=== PATIENT | female | born 1990 | race Two or more races ===

== ENCOUNTER 2016-08-19 15:06 | Emergency (ER) | payer MEDICAID ==
[~2016-08-19] VITALS: Ht 154.9 cm; Wt 68.0 kg
[2016-08-19 15:26] VITALS: BP 131/75
== END 2016-08-19 15:52 | disposition home or self-care (01) ==
LOC: ER 15:15
DX: M25.512 Pain in left shoulder (principal)

== ENCOUNTER 2017-02-24 16:12 | Emergency (ER) | payer SELFPAY ==
[~2017-02-24] VITALS: Ht 154.9 cm; Wt 58.1 kg
[2017-02-24 18:19] LABS: Urine Bilirubin Negative (Negative); Urine Blood Negative /uL (Negative); Urine Color Colorless (Yellow); Urine Glucose Normal (Normal); Urine Ketone Negative (Negative); Urine Nitrite Negative (Negative); Urine RBC <1 /hpf (0 - 4); Urine Urobilinogen Normal (Negative); Urine pH 6.5 (5.0-8.0)
[2017-02-24] MEDS ORDERED: KETOROLAC TROMETH 60MG/2ML VIAL IM ONE (18:45)
[2017-02-24] MEDS ORDERED: methylPREDNISolone SOD SUCC 125 MG/2 ML VL IM ONE (18:45)
[2017-02-24 19:36] VITALS: BP 136/82
== END 2017-02-24 19:38 | disposition home or self-care (01) ==
LOC: ER 16:15
DX: M54.16 Radiculopathy, lumbar region (principal); M79.1 Myalgia
CPT/HCPCS: 81001; 81025; 96372; 99284; J1885; J2930

== ENCOUNTER 2018-07-05 11:22 | Emergency (ER) | payer MEDICAID, OTHER ==
[~2018-07-05] VITALS: Ht 154.9 cm; Wt 56.7 kg
[2018-07-05 12:04] VITALS: BP 130/89
[2018-07-05] MEDS ORDERED: cefTRIAXone SOD 1,000 MG VL IM ONE (12:45)
[2018-07-05] MEDS ORDERED: KETOROLAC TROMETH 60MG/2ML VIAL IM ONE (12:45)
== END 2018-07-05 13:13 | disposition home or self-care (01) ==
LOC: ER 11:22
DX: N39.0 Urinary tract infection, site not specified (principal)
CPT/HCPCS: 96372; 99283; J0696; J1885

== ENCOUNTER 2020-10-11 12:26 | Emergency (ER) | payer OTHER ==
[~2020-10-11] VITALS: Ht 154.9 cm; Wt 68.0 kg
[2020-10-11] MEDS ORDERED: MORPHINE SULFATE 4 MG/ML SYR/VIAL IV ONE (12:45)
[2020-10-11] MEDS ORDERED: SODIUM CHLORIDE 0.9% 1,000 ML IV ONE ×2 (12:45)
[2020-10-11] MEDS ORDERED: ONDANSETRON HCL 4 MG/2 ML VIAL IV ONE (12:45)
[2020-10-11 13:03] LABS: Basophils # (auto) 0 10 ^3/uL (0-0.2); Basophils % (auto) 0.3 % (0.0-2.0); Eosinophils # (auto) 0.1 10 ^3/uL (0-0.8); Eosinophils % (auto) 1.4 % (0.0-7.0); Hematocrit 42.4 % (36.0-46.0); Hemoglobin 13.9 g/dL (12.2-16.2); Lymphocytes # (auto) 3.9 10 ^3/uL (0.4-5.4); Lymphocytes % (auto) 45.7 % (10.0-50.0); Mean Corpuscular Hemoglobin 27.4 pg (28.0-32.0); Mean Corpuscular Hgb Conc. 32.8 g/dL (32.0-36.0); Mean Corpuscular Volume 83.4 fL (80.0-100.0); Monocytes # (auto) 0.4 10 ^3/uL (0-1.3); Monocytes % (auto) 4.5 % (0.0-12.0); Neutrophils # (auto) 4.1 10 ^3/uL (1.6-8.6); Neutrophils % (auto) 48.1 % (37.0-80.0); Nucleated Red Blood Cells % 0.1 %; Red Blood Cells 5.09 10^6/uL (4.0-5.20); Red Cell Distribution Width 14.2 % (11.8-14.3); White Blood Cell 8.5 10^3/uL (4.4-10.8)
[2020-10-11 13:26] LABS: Albumin 3.8 g/dL (3.4-5.0); Anion Gap 8 (5-15); Blood Urea Nitrogen 7 mg/dL (7-18); Calcium 8.9 mg/dL (8.5-10.1); Carbon Dioxide 22 mmol/L (21-32); Chloride 110 mmol/L (98-107); Glucose 127 mg/dL (74-106); Potassium 3.6 mmol/L (3.5-5.1); Sodium 140 mmol/L (136-145)
[2020-10-11 13:31] LABS: Alanine Aminotransferase 42 U/L (13-56); Alkaline Phosphatase 88 U/L (45-117); Aspartate Aminotransferase 25 U/L (15-37); BUN/Creatinine Ratio 8.4; Bilirubin, Total 0.2 mg/dL (0.2-1.0); GFR African American 103 mL/min; GFR Non-African American 85 mL/min; Total Protein 7.3 g/dL (6.4-8.2)
[2020-10-11 14:41] LABS: Urine Bacteria NONE SEEN /hpf (None Seen); Urine Blood 3+ /uL (Negative); Urine Mucus FEW (None Seen); Urine Specific Gravity 1.017 (1.001-1.035); Urine WBC 1 /hpf (0 - 5)
[2020-10-11 16:00] VITALS: BP 132/83
== END 2020-10-11 14:06 | disposition short-term general hospital (02) ==
LOC: ER 12:26
DX: R10.31 Right lower quadrant pain (principal); D48.9 Neoplasm of uncertain behavior, unspecified
CPT/HCPCS: 36415; 71045; 74176; 80053; 81001; 84484; 85025; 96361; 96374; 96375; 99285; J2270; J2405

== ENCOUNTER 2023-08-05 09:16 | Emergency (ER) | payer OTHER ==
[~2023-08-05] VITALS: Ht 167.6 cm; Wt 93.9 kg
[2023-08-05 10:53] LABS: Basophils # (auto) 0 10 ^3/uL (0-0.2); Basophils % (auto) 0.2 % (0.0-2.0); Eosinophils # (auto) 0 10 ^3/uL (0-0.8); Eosinophils % (auto) 0.4 % (0.0-7.0); Hematocrit 36.5 % (36.0-46.0); Hemoglobin 11.6 g/dL (12.2-16.2); Lymphocytes # (auto) 1.5 10 ^3/uL (0.4-5.4); Mean Corpuscular Hemoglobin 21.8 pg (28.0-32.0); Mean Corpuscular Hgb Conc. 31.7 g/dL (32.0-36.0); Mean Corpuscular Volume 68.6 fL (80.0-100.0); Monocytes # (auto) 0.4 10 ^3/uL (0-1.3); Monocytes % (auto) 5.8 % (0.0-12.0); Neutrophils # (auto) 5.2 10 ^3/uL (1.6-8.6); Neutrophils % (auto) 72.6 % (37.0-80.0); Nucleated Red Blood Cells % 0.1 %; Red Blood Cells 5.32 10^6/uL (4.0-5.20); Red Cell Distribution Width 17.5 % (11.8-14.3); White Blood Cell 7.2 10^3/uL (4.4-10.8)
[2023-08-05 10:55] LABS: Amphetamine Screen, Urine Neg (NEGATIVE); Barbiturate Scree,Urine Neg (NEGATIVE); Benzodiazephine Screen, Urine Neg (NEGATIVE); Cannabinoid Screen, Urine Neg (NEGATIVE); Cocaine Screen, Urine Neg (NEGATIVE); Opiate Scree,Urine Neg (NEGATIVE); Phencyclidine Screen, Urine Neg (NEGATIVE)
[2023-08-05 11:03] LABS: Chloride 107 mmol/L (98-107); Potassium 4.2 mmol/L (3.5-5.1); Sodium 137 mmol/L (136-145)
[2023-08-05 11:04] LABS: Anion Gap 3 (5-15); Carbon Dioxide 27 mmol/L (20-30)
[2023-08-05 11:08] LABS: Urine Bacteria NONE SEEN /hpf (None Seen); Urine Blood 3+ /uL (Negative); Urine Clarity HAZY (Clear); Urine Color Yellow (Yellow); Urine Protein, UAD 1+ (Negative); Urine Specific Gravity 1.024 (1.001-1.035); Urine Urobilinogen Normal (Negative); Urine WBC 3 /hpf (0 - 5); Urine pH 6.5 (5.0-8.0)
[2023-08-05 11:09] LABS: BUN/Creatinine Ratio 8.6 (10.0-20.0); Blood Urea Nitrogen 7 mg/dL (9-23); Glucose 160 mg/dL (74-106)
[2023-08-05 11:10] LABS: Lipase 30 U/L (12-53)
[2023-08-05 12:59] VITALS: BP 137/83; PULSE 79; RESP 18; TEMP 97.6; O2SAT 96
[2023-08-05] MEDS ORDERED: cefTRIAXone SOD 1,000 MG VL IM ONE (13:00)
[2023-08-05] MEDS ORDERED: NITR-87 PO (13:14)
== END 2023-08-05 13:16 | disposition home or self-care (01) ==
LOC: ER 09:16
DX: N39.0 Urinary tract infection, site not specified (principal); R10.2 Pelvic and perineal pain; Z79.899 Other long term (current) drug therapy
CPT/HCPCS: 36415; 80048; 80307; 81001; 83690; 84702; 85025; 96372; 99283; J0696

== ENCOUNTER 2024-02-22 18:00 | Emergency (ER) | payer OTHER ==
[~2024-02-22] VITALS: Ht 152.4 cm; Wt 88.5 kg
[~2024-02-22 18:00] MED LIST: NITR-87 PO
[2024-02-22 18:17] VITALS: BP 127/76; PULSE 82; RESP 16; O2SAT 97
[2024-02-22] MEDS: KETOROLAC TROMETH 60MG/2ML VIAL IM ONE (20:56)
[2024-02-22] MEDS ORDERED: AUG875T PO (21:34)
[2024-02-22] MEDS ORDERED: IBUP-1456 PO (21:34)
[2024-02-22] MEDS: BENZOCAINE (DENTAL) 20 % SPRAY 60ML MT ONE (21:46)
== END 2024-02-22 21:51 | disposition home or self-care (01) ==
LOC: ER 18:00
DX: K02.9 Dental caries, unspecified (principal); Z79.899 Other long term (current) drug therapy
CPT/HCPCS: 96372; 99283; J1885

== ENCOUNTER 2024-05-08 06:10 | Emergency (ER) | payer OTHER ==
[~2024-05-08] VITALS: Ht 152.4 cm; Wt 93.1 kg
[~2024-05-08 06:10] MED LIST changes: +AUG875T PO; +IBUP-1456 PO
[2024-05-08 07:25] VITALS: BP 150/87; PULSE 87; RESP 13; TEMP 97.9; O2SAT 97
[2024-05-08] MEDS: cefTRIAXone SOD 1,000 MG VL IM ONE (07:28)
[2024-05-08] MEDS: IBUPROFEN 800 MG TAB PO ONE (07:28)
[2024-05-08] MEDS ORDERED: CLIN1CAP70 PO (08:00)
[2024-05-08] MEDS ORDERED: IBUP-1456 PO (08:00)
== END 2024-05-08 08:03 | disposition home or self-care (01) ==
LOC: ER 06:10
DX: K04.7 Periapical abscess without sinus (principal); F17.210 Nicotine dependence, cigarettes, uncomplicated; Z79.1 Long term (current) use of non-steroidal anti-inflammatories (NSAID)
CPT/HCPCS: 96372; 99283; J0696

== ENCOUNTER 2024-06-16 08:22 | Emergency (ER) | payer OTHER ==
[~2024-06-16] VITALS: Ht 152.4 cm; Wt 92.2 kg
[~2024-06-16 08:22] MED LIST changes: +CLIN1CAP70 PO
[2024-06-16 09:13] VITALS: BP 112/70; PULSE 82; RESP 20; TEMP 99.1; O2SAT 98
[2024-06-16] MEDS ORDERED: ACE3T PO (09:34)
[2024-06-16] MEDS ORDERED: AMOX500T3 PO (09:34)
--- NOTE | 2024-06-16 09:35 | ED.PDOC ---
Eye-HPI HPI Comments 34-year-old female presents with a chief complaint of atraumatic tooth pain to the right upper quadrant. Patient has been seen multiple times for the same complaint in the past. Patient reports she has not made time to follow up with a dental provider. Pain is currently rated as moderate in his requesting antibiotics. Denies difficulty eating drinking breathing. Denies chest pain shortness of breath fevers chills nausea vomiting diarrhea Chief Complaint: Tooth Pain Time Seen by MD: 08:38 Primary Care Provider: DR RAYMUNDO Reviewed Notes: Nurses Notes, Medications, Allergies Allergies: Coded Allergies: NO KNOWN ALLERGIES (Unverified , 05/12/13) Home Meds Active Scripts Ibuprofen (Ibuprofen) 800 Mg Tab, 1 TAB PO TID, #30 TAB Prov:ANANDA COSTA 05/08/24 Clindamycin Hcl (Clindamycin Hcl) 300 Mg Cap, 300 MG PO QID, #40 CAP Prov:ANANDA COSTA 05/08/24 Ibuprofen (Ibuprofen) 800 Mg Tab, 800 MG PO Q8HP PRN for 5 Days, #15 TAB Prov:HAYLEY OSEGUERA 02/22/24 Amoxicillin & Pot Clavulanate (AUGMENTIN TABLET) 875 Mg Tb, 875 MG PO BID for 7 Days, #14 TAB Prov:HAYLEY OSEGUERA 02/22/24 Nitrofurantoin Monohydrate Mac (Macrobid) 100 Mg Cap, 100 MG PO BID for 7 Days, #14 CAP Prov:JENN NICHOLE MD 08/05/23 Information Source: Patient Mode of Arrival: Ambulatory Past Medical History PAST MEDICAL HISTORY: Denies Surgical History: Denies all surgeries COMMUNITY RELATIONS LIAISON History: No Pertinent COMMUNITY RELATIONS LIAISON History Family History Family History: Reviewed,noncontributory to illness Social History Smoker: Cigarettes Alcohol: Denies ETOH Use Drugs: Denies Drug Use Lives In: Home All Other Systems: Reviewed and Negative (per hpi) Physical Exam General Appearance: No Apparent Distress, Normal HEENT: Normal ENT Inspection, Pharynx Normal, TMs Normal, Other (Tooth 15. Visible dental jayme. No surrounding erythema. No discharge. Moist mucous membranes airway intact) Neck: Full Range of Motion, Non-Tender, Normal, Normal Inspection Respiratory: Chest Non-Tender, Lungs Clear, No Accessory Muscle Use, No Respiratory Distress, Normal Breath Sounds Cardiovascular: No Edema, No JVD, No Murmur, No Gallop, Normal Peripheral Pulses, Regular Rate/Rhythm Breast Exam: Deferred Gastrointestinal: No Organomegaly, Non Tender, No Pulsatile Mass, Normal Bowel Sounds, Soft Genitalia: Deferred Pelvic: Deferred Rectal: Deferred Extremities: No calf tenderness, Normal capillary refill, Normal inspection, Normal range of motion, Non-tender, No pedal edema Musculoskeletal : Apperance: Normal Neurologic: Alert, elementary teacher II-XII nml as Tested, No Motor Deficits, Normal Affect, Normal Mood, No Sensory Deficits Cerebellar Function: Normal Reflexes: Normal Skin: Dry, Normal Color, Warm Lymphatic: No Adenopathy Was a procedure done? Was a procedure done?: No EENT DIFF Eye: Other X-Ray, Labs, Meds, VS Vital Signs Date Time Temp Pulse Resp B/P (MAP) Pulse Ox O2 Delivery O2 Flow Rate FiO2 06/16/24 09:13 99.1 82 20 112/70 (84) 98 99.1 06/16/24 09:13 82 20 98 Room Air 06/16/24 08:36 99.0 86 20 117/77 (90) 97 X-Ray, Labs, Meds, VS Comment Nontoxic non ill-appearing. Stressed the importance to follow up with a dental provider. Tooth needs to be extracted the patient verbalized understanding. Return precautions discussed Time of 1ST Reevaluation: 09:33 Reevaluation 1ST: Improved Patient Education/Counseling: Diagnosis, Treatment Family Education/Counseling: Diagnosis, Treatment Departure 1 Departure Time of Disposition: :33 Impression: Primary Impression: Dental caries Disposition: HOME / SELF CARE / HOMELESS Condition: Stable e-Prescriptions Acetaminophen W/ Codeine (Tylenol W/Cod #3) 1 Tab Tb 1 TAB PO BIDPRN PRN for 5 Days, #10 TAB 0 Refills Prov: DIALLO BLAS RADIOLOGY ASST 06/16/24 Amoxicillin Trihydrate (Amoxicillin) 500 Mg Tab 1 TAB PO BID for 10 Days, #20 TAB 0 Refills Prov: DIALLO BLAS NP 06/16/24 Discharged With: Self Critical Care Note Critical Care Time?: No Stability Stability form required: No Heart Score Heart Score: Heart Score Response (Comments) Value History N/A 0 EKG N/A 0 Age N/A 0 Risk Factors N/A 0 Troponin N/A 0 Total 0 DIALLO BLAS NP Jun 16, 2024 09:35
== END 2024-06-16 10:06 | disposition home or self-care (01) ==
LOC: ER 08:22
DX: K02.9 Dental caries, unspecified (principal); F17.210 Nicotine dependence, cigarettes, uncomplicated; Z79.1 Long term (current) use of non-steroidal anti-inflammatories (NSAID); Z79.2 Long term (current) use of antibiotics; Z79.899 Other long term (current) drug therapy

== ENCOUNTER 2024-07-21 03:16 | Emergency (ER) | payer OTHER ==
[~2024-07-21] VITALS: Ht 152.4 cm; Wt 92.9 kg
[~2024-07-21 03:16] MED LIST changes: +ACE3T PO; +AMOX500T3 PO
[2024-07-21 03:25] VITALS: BP 113/75; PULSE 88; RESP 18; TEMP 98.8; O2SAT 97
[2024-07-21] MEDS ORDERED: AMOX875T4 PO (03:51)
--- NOTE | 2024-07-21 03:51 | ED.PDOC ---
Eye-HPI HPI Comments 34 YEAR OLD FEMALE PRESENTS TO ER WITH COMPLAINTS OF TOOTHACHE X 2 DAYS. PATIENT STATES SHE HAS BEEN EXPERIENCING LEFT UPPER TOOTHACHE X 2 DAYS. SHE RATES HER CURRENT LEFT UPPER TOOTHACHE PAIN A 02/14. NOTES SHE HAS BEEN TAKING IBUPROFEN FOR HER PAIN WITH SLIGHT RELIEF. NOTES SHE DOES HAVE AN APPOINTMENT WITH A DENTIST ON 07-29-24. DENIES FEVER, SKIN CHANGES, HEADACHE OR ANY FURTHER SYMPTOMS/COMPLAINTS Chief Complaint: Tooth Pain Time Seen by MD: 03:24 Primary Care Provider: DR RAYMUNDO Reviewed Notes: Nurses Notes, Medications, Allergies Allergies: Coded Allergies: NO KNOWN ALLERGIES (Unverified , 05/12/13) Home Meds Active Scripts Amoxicillin & Pot Clavulanate (Amoxicillin/Potassium Cla) 875 Mg Tab, 1 TAB PO BID for 7 Days, #14 TAB 0 Refills Prov:EH BEGUM 07/21/24 Acetaminophen W/ Codeine (Tylenol W/Cod #3) 1 Tab Tb, 1 TAB PO BIDPRN PRN for 5 Days, #10 TAB 0 Refills Prov:DIALLO BLAS NP 06/16/24 Amoxicillin Trihydrate (Amoxicillin) 500 Mg Tab, 1 TAB PO BID for 10 Days, #20 TAB 0 Refills Prov:DIALLO BLAS NP 06/16/24 Ibuprofen (Ibuprofen) 800 Mg Tab, 1 TAB PO TID, #30 TAB Prov:ANANDA COSTA 05/08/24 Clindamycin Hcl (Clindamycin Hcl) 300 Mg Cap, 300 MG PO QID, #40 CAP Prov:ANANDA COSTA 05/08/24 Ibuprofen (Ibuprofen) 800 Mg Tab, 800 MG PO Q8HP PRN for 5 Days, #15 TAB Prov:HAYLEY OSEGUERA 02/22/24 Amoxicillin & Pot Clavulanate (AUGMENTIN TABLET) 875 Mg Tb, 875 MG PO BID for 7 Days, #14 TAB Prov:HAYLEY OSEGUERA 02/22/24 Nitrofurantoin Monohydrate Mac (Macrobid) 100 Mg Cap, 100 MG PO BID for 7 Days, #14 CAP Prov:JENN NICHOLE MD 08/05/23 Information Source: Patient Mode of Arrival: Ambulatory Past Medical History PAST MEDICAL HISTORY: Anxiety, Depression, DM Surgical History: REHABILITATION ENGINEER History: No Pertinent REHABILITATION ENGINEER History Family History Family History: Unknown Social History Smoker: Cigarettes, Less Than 1 Pack/Day Alcohol: Denies ETOH Use Drugs: Denies Drug Use Lives In: Home Constitutional: denies: chills, diaphoresis, fatigue, fever, malaise, sweats, weakness, others EENTM: reports: others ( STATED IN HPI) Respiratory: denies: cough, hemoptysis, orthopnea, SOB at rest, shortness of breath, SOB with excertion, stridor, wheezing, others Cardiovascular: denies: chest pain, dizzy spells, diaphoresis, Dyspnea on exertion, edema, irregular heart beat, left arm pain, lightheadedness, palpitations, PND, syncope, others Gastrointestinal: denies: abdomen distended, abdominal pain, blood streaked bowels, constipated, diarrhea, dysphagia, difficulty swallowing, hematemesis, melena, nausea, poor appetite, poor fluid intake, rectal bleeding, rectal pain, vomiting, others Genitourinary: denies: abnormal vagina bleeding, burning, dyspareunia, dysuria, flank pain, frequency, hematuria, incontinence, pain, , vagina discharge, urgency, others Neurological: denies: dizziness, fainting, headache, left sided numbness, left sided weakness, numbness, paresthesia, pre-existing deficit, right sided numbness, right sided weakness, seizure, speech problems, tingling, tremors, weakness, others Musculoskeletal: denies: back pain, gout, joint pain, joint swelling, muscle pain, muscle stiffness, neck pain, others Integumetry: denies: bruises, change in color, change in hair/nails, dryness, laceration, lesions, lumps, rash, wounds, others Allergic/Immunocompromised: denies: Difficulty Healing, Frequent Infections, Hives, Itching, others Hematologic/Lymphatic: denies: anemia, blood clots, easy bleeding, easy bruising, swollen glands, others Endocrine: denies: excessive hunger, excessive sweating, excessive thirst, excessive urination, flushing, intolerance to cold, intolerance to heat, unexplained weight gain, unexplained weight loss, others Psychiatric: denies: anxiety, bipolar disorder, depression, hopeless, panic disorder, schizophrenia, sleepless, suicidal, others Physical Exam General Appearance: No Apparent Distress, Obese HEENT: PERRL/EOMI, Pharynx Normal, TMs Normal, Other (SEVERAL UPPER BROKEN TEETH NOTED. MILD SWELLING/ERYTHEMA NOTED TO POSTERIOR LEFT UPPER GUMS WITHOUT BLEEDING/DRAINAGE. OVERALL VERY POOR DENTAL HYGIENE NOTED. NO FACIAL SWELLING/SKIN CHANGES APPRECIATED) Neck: Full Range of Motion, Non-Tender, Normal Respiratory: Chest Non-Tender, Lungs Clear, No Accessory Muscle Use, No Respiratory Distress, Normal Breath Sounds Cardiovascular: No Murmur, No Gallop, Regular Rate/Rhythm Breast Exam: Deferred Gastrointestinal: NOT DONE Genitalia: Deferred Pelvic: Deferred Rectal: Deferred Extremities: Normal capillary refill, Normal range of motion Neurologic: Alert, inclusion paraeducator II-XII nml as Tested, No Motor Deficits, Normal Affect, Normal Mood, No Sensory Deficits Cerebellar Function: Normal Reflexes: Normal Skin: Dry, Normal Color, Warm Lymphatic: No Adenopathy Was a procedure done? Was a procedure done?: No Sedation Sedation?: No EENT DIFF Eye: N/A Mouth: Thrush, Other (LARISSA'S ANGINA, DENTAL ABSCESS) X-Ray, Labs, Meds, VS Vital Signs Date Time Temp Pulse Resp B/P (MAP) Pulse Ox O2 Delivery O2 Flow Rate FiO2 07/21/24 03:25 98.8 88 18 113/75 (88) 97 07/21/24 03:25 98.8 88 18 113/75 (88) 97 98.8 07/21/24 03:25 Room Air ROCEPHIN 1 G IM ORDERED HURRICANE SPRAY ORDERED, PATIENT EDUCATED ON PROPER USE/DOSAGE PREVIOUS CHART VISITS REVIEWED ADVISED TO FOLLOW UP WITH PCP AND DENTIST IN 1-2 DAYS PATIENT VERBALIZED UNDERSTANDING AND AGREEABLE WITH CURRENT PLAN OF CARE ADVISED TO RETURN TO ER IMMEDIATELY IF SYMPTOMS WORSEN Time of 1ST Reevaluation: 03:20 Reevaluation 1ST: N/A Patient Education/Counseling: Diagnosis, Treatment, Prognosis, Need For Follow Up Family Education/Counseling: No Family Present Departure 1 Departure Time of Disposition: 03:42 Impression: Primary Impression: Dental infection Additional Impression: Broken teeth Disposition: HOME / SELF CARE / HOMELESS Condition: Stable e-Prescriptions Amoxicillin & Pot Clavulanate (Amoxicillin/Potassium Cla) 875 Mg Tab 1 TAB PO BID for 7 Days, #14 TAB 0 Refills Prov: EH BEGUM 07/21/24 Discharged With: Self Critical Care Note Critical Care Time?: No Stability Stability form required: No Heart Score Heart Score: Heart Score Response (Comments) Value History N/A 0 EKG N/A 0 Age N/A 0 Risk Factors N/A 0 Troponin N/A 0 Total 0 EH BEGUM Jul 21, 2024 03:51
[2024-07-21] MEDS: BENZOCAINE (DENTAL) 20 % SPRAY 60ML MT ONE (03:59)
[2024-07-21] MEDS: cefTRIAXone SOD 1,000 MG VL IM ONE (04:05)
== END 2024-07-21 04:13 | disposition home or self-care (01) ==
LOC: ER 03:16
DX: S02.5XXA Fracture of tooth (traumatic), initial encounter for closed fracture (principal); K04.7 Periapical abscess without sinus; E11.9 Type 2 diabetes mellitus without complications; F17.210 Nicotine dependence, cigarettes, uncomplicated; Z79.1 Long term (current) use of non-steroidal anti-inflammatories (NSAID); X58.XXXA Exposure to other specified factors, initial encounter; Y93.89 Activity, other specified; Y92.89 Other specified places as the place of occurrence of the external cause; Y99.8 Other external cause status
CPT/HCPCS: 96372; 99283; J0696

== ENCOUNTER 2024-08-07 19:33 | Emergency (ER) | payer OTHER ==
[~2024-08-07] VITALS: Ht 152.4 cm; Wt 92.8 kg
[~2024-08-07 19:33] MED LIST changes: +AMOX875T4 PO
[2024-08-07 23:04] VITALS: BP 145/87; PULSE 76; RESP 17; TEMP 97.9; O2SAT 99
--- NOTE | 2024-08-07 23:26 | ED.PDOC ---
Psychiatric HPI Comments Pt presents to the ER due to medication refill. Pt states she is perscribed Methadone and "ran out of it x3 days ago." Pt PMHanxiety,depression, PTSD, DM. Pt reports bodyaches headache, nausea and fatigue. Chief Complaint: Anxiety Time Seen by MD: 19:40 Primary Care Provider: Dr. 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: No Pertinent SEO COORDINATOR History Family History Family History: Unknown Social History Smoker: Cigarettes, Less Than 1 Pack/Day Alcohol: Denies ETOH Use Drugs: Denies Drug Use Lives In: Home Constitutional: reports: fatigue; denies: chills, diaphoresis, fever, malaise, sweats, weakness, others EENTM: denies: blurred vision, double vision, ear bleeding, ear discharge, ear drainage, ear pain, ear ringing, eye pain, eye redness, hearing loss, mouth pain, mouth swelling, nasal discharge, nose bleeding, nose congestion, nose pain, photophobia, tearing, throat pain, throat swelling, voice changes, others Respiratory: denies: cough, hemoptysis, orthopnea, SOB at rest, shortness of breath, SOB with excertion, stridor, wheezing, others Cardiovascular: denies: chest pain, dizzy spells, diaphoresis, Dyspnea on exertion, edema, irregular heart beat, left arm pain, lightheadedness, palpitations, PND, syncope, others Gastrointestinal: reports: nausea; denies: abdomen distended, abdominal pain, blood streaked bowels, constipated, diarrhea, dysphagia, difficulty swallowing, hematemesis, melena, poor appetite, poor fluid intake, rectal bleeding, rectal pain, vomiting, others Genitourinary: denies: abnormal vagina bleeding, burning, dyspareunia, dysuria, flank pain, frequency, hematuria, incontinence, pain, , vagina discharge, urgency, others Neurological: reports: headache; denies: dizziness, fainting, left sided numbness, left sided weakness, numbness, paresthesia, pre-existing deficit, right sided numbness, right sided weakness, seizure, speech problems, tingling, tremors, weakness, others Musculoskeletal: denies: back pain, gout, joint pain, joint swelling, muscle pain, muscle stiffness, neck pain, others Integumetry: denies: bruises, change in color, change in hair/nails, dryness, laceration, lesions, lumps, rash, wounds, others Allergic/Immunocompromised: denies: Difficulty Healing, Frequent Infections, Hives, Itching, others Hematologic/Lymphatic: denies: anemia, blood clots, easy bleeding, easy bruising, swollen glands, others Endocrine: denies: excessive hunger, excessive sweating, excessive thirst, excessive urination, flushing, intolerance to cold, intolerance to heat, unexplained weight gain, unexplained weight loss, others Psychiatric: denies: anxiety, bipolar disorder, depression, hopeless, panic disorder, schizophrenia, sleepless, suicidal, others Physical Exam General Appearance: No Apparent Distress, Normal HEENT: Normal ENT Inspection, Pharynx Normal, TMs Normal Neck: Full Range of Motion, Non-Tender Respiratory: Lungs Clear, No Respiratory Distress, Normal Breath Sounds Cardiovascular: No Edema, No JVD, No Murmur, No Gallop, Normal Peripheral Pulses, Regular Rate/Rhythm Breast Exam: Deferred Gastrointestinal: No Organomegaly, Non Tender, No Pulsatile Mass, Normal Bowel Sounds, Soft Genitalia: Deferred Pelvic: Deferred Rectal: Deferred Extremities: Normal capillary refill, Normal inspection, Normal range of motion, Non-tender, No pedal edema Musculoskeletal : Apperance: Normal Neurologic: Alert, supervisor byproducts II-XII nml as Tested, No Motor Deficits, Normal Affect, Normal Mood, No Sensory Deficits Cerebellar Function: Normal Reflexes: Normal Skin: Dry, Normal Color, Warm Lymphatic: No Adenopathy Was a procedure done? Was a procedure done?: No Psych Differential Dx Psych. Differential Dx: Anxiety Intoxication Differential Dx: Medical Noncompliance X-Ray, Labs, Meds, VS Vital Signs Date Time Temp Pulse Resp B/P (MAP) Pulse Ox O2 Delivery O2 Flow Rate FiO2 08/07/24 23:04 97.9 76 17 145/87 (106) 99 97.9 08/07/24 23:04 76 17 99 Room Air 08/07/24 20:07 98.1 85 16 124/84 (97) 96 Current Medications Medications (Trade) Dose Ordered Sig/Jessie Route Start Time Stop Time Status Last Admin Ketorolac Tromethamine (Toradol Injection) 60 mg ONCE ONCE IM 08/07/24 23:45 08/07/24 23:46 DC 08/07/24 23:41 Ondansetron HCl (Zofran Po) 4 mg ONCE ONCE PO 08/07/24 23:45 08/07/24 23:46 DC 08/07/24 23:41 X-Ray, Labs, Meds, VS Comment Toradol 60 mg IM for the body aches and headache and Zofran 4 mg p.o. for nausea. Advised patient to call her pain management shot to get in sooner we will script Zofran 4 mg t.i.d. for nausea. Advised to rest increase p.o. fluids with electrolytes ER return precautions given patient indicates understanding agrees with discharge plan of care. Time of 1ST Reevaluation: 23:50 Reevaluation 1ST: Improved Patient Education/Counseling: Diagnosis, Treatment, Prognosis, Need For Follow Up Family Education/Counseling: No Family Present Departure 1 Departure Time of Disposition: 23:55 Impression: Primary Impression: Medication refill Disposition: 01 HOME / SELF CARE / HOMELESS Condition: Stable Discharged With: Self Critical Care Note Critical Care Time?: No Stability Stability form required: HAYLEY Palacio Aug 07, 2024 23:25
[2024-08-07] MEDS: KETOROLAC TROMETH 60MG/2ML VIAL IM ONE (23:41)
[2024-08-07] MEDS: ONDANSETRON ODT 4 MG TAB PO ONE (23:41)
== END 2024-08-08 00:08 | disposition home or self-care (01) ==
LOC: ER 19:33
DX: R51.9 Headache, unspecified (principal); R11.0 Nausea; M79.10 Myalgia, unspecified site; Z76.0 Encounter for issue of repeat prescription; R53.83 Other fatigue; F17.210 Nicotine dependence, cigarettes, uncomplicated; F41.9 Anxiety disorder, unspecified; F32.9 Major depressive disorder, single episode, unspecified; E11.9 Type 2 diabetes mellitus without complications; Z98.890 Other specified postprocedural states
CPT/HCPCS: J1885; Q0162; 96372

== ENCOUNTER 2024-09-02 15:54 | Inpatient (IN) | payer OTHER ==
[~2024-09-02] VITALS: Ht 152.4 cm; Wt 92.6 kg
--- NOTE | 2024-09-02 16:04 | ED.PDOC ---
GI ASSESSMENT HPI Comments HPI: Poor Historian. HPI: 34 year old female presents to the ED with chief complaint of epigastric abdominal pain. Patient reports that she has been experiencing epigastric abdominal pain with associated radiation to the RUQ and nausea since 8-9am. Patient relays that she has never had pain like this before. Patient denies any vomiting, diarrhea, fever, chills, dizziness, chest pain, or SOB. Initial Vital Signs: Temp : BP: 181/114 HR: 125 RR: 20 SpO2: 100% Past Medical History: PTSD, Depression, Anxiety, DM, Scoliosis Past Surgical History: Social History: Denies smoking, ETOH, or drug use. Medications: Methadone for previous Heroin usage Allergies: NKDA REVIEW OF SYSTEMS: CONSTITUTIONAL: Denies acute: fever, diaphoresis, chills, generalized weakness. HEAD: Denies acute: headache, photophobia Eyes: Denies acute: Double vision, vision loss, eye pain, eye discharge. EARS: Denies acute: tinnitus, hearing loss, ear discharge, ear pain, THROAT: Denies acute: sore throat, swelling, difficulty swallowing , pain with swallowing, change in voice. NECK: Denies acute: neck pain, neck swelling, stiff neck. HEART: Denies acute : chest pain, palpitations, LUNGS: Denies acute: SOB, wheezing, cough, hemoptysis ABDOMEN: Denies acute: Vomiting, diarrhea, melena , hematemesis, hematochezia SKIN: Denies acute: rash, redness, lesions, itchiness. EXTREMITIES: Denies acute: calf pain, numbness, tingling, weakness, denies pain in extremity. Denies acute: Low back pain. Neuro: Denies acute: focal neurological deficit, motor or sensory focal neurological d eficit, tremors, seizure like activity, confusion, dizziness, change in mental status, loss of bowel or bladder function, cauda equina like symptoms. : Denies acute: dysuria, hematuria, flank pain, increase in urinary frequency. PSYCH: Denies acute: hallucination, suicidal ideation, homicidal ideation. FEMALE: Denies acute: abnormal vaginal bleeding, foul odor, unusual discharge. PHYSICAL EXAM: General: [id number] acute distress, awake and alert. Head: normocephalic, atraumatic. Neck: supple, trachea is midline, no swelling. Throat: Normal phonation. Eyes:, no erythema, no purulent discharge, no proptosis, no icterus. Heart: regular rate, regular rhythm, no significant murmur appreciated. Lungs: no apparent respiratory distress, Able to speak in full sentences. No wheezing, no rhonchi, no crackles. No stridors Clear to auscultation bilaterally. Abdomen: Epigastric and right upper quadrant tender to palpation, non distended, soft, no guarding, no rebound, + bowel sounds. Neuro: Awake, Alert, oriented to name, self, situation, follows commands GCS=15. Speech is normal. Skin: no petechia, no purpura, no cyanosis, non-pale, not jaundice. Lower extremities: --no - Pitting edema no deformity, no focal swelling, no calf TTP. Makes eye contact. moves all four extremities. Face: no apparent facial droop. Ambulating in the ED independently. ED COURSE: Time Seen by MD: 16:01 Primary Care Provider: Dr. Bonilla Reviewed Notes: Medications, Allergies Allergies: Coded Allergies: Acetaminophen (Verified Allergy, Severe, 09/02/24) Codeine (Verified Allergy, Severe, 09/02/24) Home Meds Active Scripts Amoxicillin Trihydrate (Amoxicillin) 500 Mg Tab, 1 TAB PO BID for 10 Days, #20 TAB 0 Refills Prov:DIALLO BLAS [employer] 06/16/24 Reported Medications Hydroxyzine Hcl (Hydroxyzine Hcl) 50 Mg Tab, 1 TAB PO TID, #90 TAB 2 Refills 09/02/24 Doxepin Hcl (Doxepin Hcl) 25 Mg Cap, 1 CAP PO QPM, #30 CAP 1 Refill 09/02/24 Lumateperone Tosylate (Caplyta) 21 Mg Cap, 21 MG PO, CAP 09/02/24 Buspirone Hcl (Buspirone Hcl) 15 Mg Tab, 1 TAB PO BID, #60 TAB 09/02/24 Information Source: Patient Mode of Arrival: Ambulatory Was a procedure done? Was a procedure done?: No GI differential Dx Differential Diagnosis: Other (DDX include Diverticulitis, colitis, gastro enteritis, acute abdomen, SBO, enteritis, constipation, volvulus, appendicitis, Gallbladder disease, choledocolithiasis, ascending cholangitis, pancreatitis, intraAbdominal mass/neoplasm, hepatitis, UTI, pylonephritis, kidney stone, aneurysm, dissection, Inflammatory bowel disease, gastroparesis, ischemic bowel, ovarian torsion, ovarian cyst/mass, tubo-ovarian abscess, , ectopic , PID, STD.) X-Ray, Labs, Meds, VS Vital Signs Date Time Temp Pulse Resp B/P (MAP) Pulse Ox O2 Delivery O2 Flow Rate FiO2 09/02/24 18:51 101 16 99 Room Air* 0 21 09/02/24 18:44 101 16 99 Room Air 09/02/24 18:44 98.1 101 16 157/87 (110) 99 98.1 09/02/24 17:55 90 09/02/24 16:03 99.8 125 20 128/89 (102) 100 09/02/24 16:02 107 Lab Test 09/02/24 19:20 09/02/24 17:38 09/02/24 16:08 Range/Units Lactic Acid Level 1.4 2.9 *H 0.4-2.0 mmol/L Troponin I High Sensitivity < 3 L < 3 L < 3 L </=34 ng/L White Blood Count 9.0 4.4-10.8 10^3/uL Red Blood Count 5.40 H 4.0-5.20 10^6/uL Hemoglobin 13.4 12.2-16.2 g/dL Hematocrit 41.6 36.0-46.0 % Mean Corpuscular Volume 77.1 L 80.0-100.0 fL Mean Corpuscular Hemoglobin 24.8 L 28.0-32.0 pg Mean Corpuscular Hemoglobin Concent 32.1 32.0-36.0 g/dL Red Cell Distribution Width 15.0 H 11.8-14.3 % Platelet Count 365 140-450 10^3/uL Mean Platelet Volume 7.3 6.9-10.8 fL Neutrophils (%) (Auto) 80.1 H 37.0-80.0 % Lymphocytes (%) (Auto) 15.0 10.0-50.0 % Monocytes (%) (Auto) 4.7 0.0-12.0 % Eosinophils (%) (Auto) 0.0 0.0-7.0 % Basophils (%) (Auto) 0.2 0.0-2.0 % Neutrophils # (Auto) 7.2 1.6-8.6 10 ^3/uL Lymphocytes # (Auto) 1.4 0.4-5.4 10 ^3/uL Monocytes # (Auto) 0.4 0-1.3 10 ^3/uL Eosinophils # (Auto) 0 0-0.8 10 ^3/uL Basophils # (Auto) 0 0-0.2 10 ^3/uL Nucleated Red Blood Cells 0.0 % Prothrombin Time 10.8 9.3-11.8 sec Prothrombin Time INR 1.02 0.9-1.15 Activated Partial Thromboplast Time 27.1 24.5-34.5 SEC Sodium Level 138 136-145 mmol/L Potassium Level 4.4 3.5-5.1 mmol/L Chloride Level 102 98-107 mmol/L Carbon Dioxide Level 26 20-31 mmol/L Anion Gap 10 5-15 Blood Urea Nitrogen 6 L 9-23 mg/dL Creatinine 0.91 0.550-1.02 mg/dL Glomerular Filtration Rate Calc 84 >90 mL/min BUN/Creatinine Ratio 6.6 L 10.0-20.0 Serum Glucose 236 H 74-106 mg/dL Calcium Level 10.4 8.7-10.4 mg/dL Total Bilirubin 0.4 0.2-1.0 mg/dL Aspartate Amino Transferase (AST) 9 L 13-40 U/L Alanine Aminotransferase (ALT) 15 7-40 U/L Alkaline Phosphatase 102 46-116 U/L Total Protein 7.8 5.7-8.2 g/dL Albumin 5.2 H 3.2-4.8 g/dL Lipase 30 12-53 U/L Current Medications Medications (Trade) Dose Ordered Sig/Jessie Route Start Time Stop Time Status Last Admin Sodium Chloride 1,000 ml @ 1,000 mls/hr Q1H ONCE IV 09/02/24 17:15 09/02/24 18:14 DC 09/02/24 18:46 Lidocaine HCl (Xylocaine 2% Viscous) 10 ml ONCE ONCE PO 09/02/24 17:15 09/02/24 17:16 DC 09/02/24 18:46 Ondansetron HCl (Zofran) 4 mg ONCE ONCE IV 09/02/24 17:15 2/26/25 17:16 DC 09/02/24 18:46 Fentanyl Citrate 100 mcg ONCE ONCE IV 09/02/24 18:45 09/02/24 20:07 DC 09/02/24 20:[address] [address] Ph: [phone] DIAGNOSTIC IMAGING Diagnostic Imaging Report : [id number] Signed PATIENT: SANDRA MIRANDACT: [id number] UNIT: [id number] : 1990 LOC: ER ROOM / BED: / AGE / SEX: 34 / F ADM STATUS: REG ER SERVICE 1600 ORDERING PHYSICIAN: RIKKI VIVAR DO PROCEDURE(s): ABDL - ABDOMEN LIMITED REASON: epig RUQ pain ORDER NUMBER(s): [id number], ACCESSION NUMBER(s): [id number] INDICATION: epig RUQ pain TECHNIQUE: Multiple real-time sonographic images were obtained of the right upper quadrant. COMPARISON: None Findings: Liver is mildly echogenic and is heterogeneous. It measures 15.5 cm in span which is within normal limits. There is a stone and sludge in the dependent portion of the gallbladder. The right kidney has normal corticomedullary differentiation and measures 11.2 cm in length and gallbladder wall measures 1.83 mm in thickness which is normal there is no cyst stone or hydronephrosis involving right kidney. Common bile duct measures 3.2 mm. There is tenderness in the right upper quadrant.. IMPRESSION: 1. Cholelithiasis and probable cholecystitis. Liver is normal in size but slightly echogenic I will check patient's liver fu nction tests. ATED BY: JESUS CHERRY MD DICTATED DATE/TIME: 09/02/241799 SIGNED BY: JESUS CHERRY MD SIGNED DATE/TIME: 09/02/241799 CC: Time of 1ST Reevaluation: 17:01 Reevaluation 1ST: Unchanged Time of 2ND Reevaluation: 20:02 (The case was discussed with the general surgery team (HPI, physical exam, labs and diagnostic tests that were available at the time of disposition, ED course, treatment plan) on the phone. They agreed to follow up patient in consult. Recommended antibiotics. Dr. Escamilla.) Patient Education/Counseling: Diagnosis, Treatment Family Education/Counseling: No Family Present Comments Patient presented with the above HPI.---abdominal pain---workup was initiated. patient was found with the above mentioned diagnosis. the following medications were ordered: please refer to order lists of meds and tests obtained by myself Dr. Vivar. Patient ED course and VS have been stabilized. Patient has been reassessed in the ED and remained in a stable condition. Pertinent incidental findings were discussed with the patient and/or family. Patient/family voices understanding and is agreeable with plan. Patient has been observed in the ED adequate length of time to insure improvement/stability. Escalation of care considered: Consideration of escalation to observation or admission General surgery was consulted. Patient was ADMITTED to the medicine team for further evaluation and treatment of their presentation. All the reports of any imaging studies that were ordered by myself were reviewed by myself. Departure 1 Departure Time of Disposition: 18:44 Impression: Primary Impression: Cholecystitis Additional Impression: Elevated lactic acid level Disposition: ADMITTED INPATIENT Admit to: Tele Condition: Guarded Discharged With: Self Critical Care Note Critical Care Time?: No I personally scribed for RIKKI VIVAR DO ([email or web address]) on 09/02/24 at 16:04. Electronically submitted by Flakito Fernandez ([email or web address]). I personally scribed for RIKKI VIVAR DO ([email or web address]) on 09/02/24 at 20:32. Electronically submitted by Mariano Sykes ([email or web address]). RIKKI VIVAR DO Sep 02, 2024 16:04
[2024-09-02 16:27] LABS: Basophils # (auto) 0 10 ^3/uL (0-0.2); Basophils % (auto) 0.2 % (0.0-2.0); Eosinophils # (auto) 0 10 ^3/uL (0-0.8); Hematocrit 41.6 % (36.0-46.0); Hemoglobin 13.4 g/dL (12.2-16.2); Lymphocytes # (auto) 1.4 10 ^3/uL (0.4-5.4); Mean Corpuscular Hemoglobin 24.8 pg (28.0-32.0); Mean Corpuscular Hgb Conc. 32.1 g/dL (32.0-36.0); Mean Corpuscular Volume 77.1 fL (80.0-100.0); Monocytes # (auto) 0.4 10 ^3/uL (0-1.3); Monocytes % (auto) 4.7 % (0.0-12.0); Neutrophils # (auto) 7.2 10 ^3/uL (1.6-8.6); Neutrophils % (auto) 80.1 % (37.0-80.0); Platelet Count (auto) 365 10^3/uL (140-450)
[2024-09-02 16:53] LABS: Alanine Aminotransferase 15 U/L (7-40); Alkaline Phosphatase 102 U/L (46-116); Anion Gap 10 (5-15); BUN/Creatinine Ratio 6.6 (10.0-20.0); Bilirubin, Total 0.4 mg/dL (0.2-1.0); Calcium 10.4 mg/dL (8.7-10.4); Carbon Dioxide 26 mmol/L (20-31); Chloride 102 mmol/L (98-107); Lactic Acid w/Reflex 2.9 mmol/L (0.4-2.0); Potassium 4.4 mmol/L (3.5-5.1); Sodium 138 mmol/L (136-145); Total Protein 7.8 g/dL (5.7-8.2)
[2024-09-02 16:56] LABS: Albumin 5.2 g/dL (3.2-4.8); Aspartate Aminotransferase 9 U/L (13-40); Blood Urea Nitrogen 6 mg/dL (9-23); Glucose 236 mg/dL (74-106)
--- NOTE | 2024-09-02 18:03 | DVH ---
INDICATION: epig RUQ pain TECHNIQUE: Multiple real-time sonographic images were obtained of the right upper quadrant. COMPARISON: None Findings: Liver is mildly echogenic and is heterogeneous. It measures 15.5 cm in span which is within normal limits. There is a stone and sludge in the dependent portion of the gallbladder. The right ki dney has normal corticomedullary differentiation and measures 11.2 cm in length and gallbladder wall measures 1.83 mm in thickness which is normal there is no cyst stone or hydronephrosis involving righ t kidney. Common bile duct measures 3.2 mm. There is tenderness in the right upper quadrant.. IMPRESSION: 1. Cholelithiasis and probable cholecystitis. Liver is normal in size but slightly echogenic I will check patient's liver function tests.
[2024-09-02] MEDS: LIDOCAINE VISCOUS 2% 15ML UD PO ONE (18:46)
[2024-09-02] MEDS: ONDANSETRON HCL 4 MG/2 ML VIAL IV ONE (18:46)
[2024-09-02] MEDS: SODIUM CHLORIDE 0.9% 1,000 ML IV ONE ×2 (18:46→23:45)
[2024-09-02 18:51] VITALS: PULSE 101; RESP 16; O2SAT 99
[2024-09-02] MEDS ORDERED: NITROGLYCERIN 0.4 MG SL TAB SL PRN (19:30)
[2024-09-02] MEDS ORDERED: MORPHINE SULFATE INJ 2 MG/ml SYRG IV PRN (19:30)
[2024-09-02] MEDS ORDERED: DEXTROSE (50%) 50ML SYRG IV PRN (19:30)
[2024-09-02 20:20] VITALS: RESP 18; O2SAT 99
[2024-09-02 20:37] LABS: INR 1.02 (0.9-1.15); Partial Thromboplastin Time 27.1 SEC (24.5-34.5); Prothrombin Time 10.8 sec (9.3-11.8)
[2024-09-02] MEDS: fentaNYL CITRATE 100 MCG/2 ML VL IV ONE (20:37)
--- NOTE | 2024-09-02 20:53 | DVH ---
CHEST RADIOGRAPH Indication: Preop Technique: Single frontal view of the chest was obtained Comparison: CHEST PORTABLE on DOS: 10/11/20 FINDINGS: Lines and Tubes: None Lungs: No focal consolidation. Decreased inspiratory effort when compared to 10/11/2020 Pleura: No effusion. No pneumothorax. Cardiomediastinal contours: Unremarkable Bones: No acute osseous abnormality. IMPRESSION: 1. No acute cardiopulmonary disease. HS:Y
--- NOTE | 2024-09-02 21:45 | DVHHP2 ---
History of Present Illness Reason for Visit: Abdominal pain History of Present Illness 34-year-old female presents for evaluation of abdominal pain. Patient reports a one day history of sharp epigastric abdominal pain radiating to her right upper quadrant and substernal chest. She denies shortness or breath. Reports nausea without emesis. No fever or chills. No other acute complaints at the moment. Past Medical History Diabetes mellitus, depression, PTSD Past Surgical History Family History Noncontributory Smoke: No ALCOHOL: none Drugs: None Lives: with Family Review of Systems Review of Systems Review of systems are currently negative otherwise addressed in HPI Allergies: Coded Allergies: Acetaminophen (Verified Allergy, Severe, 09/02/24) Codeine (Verified Allergy, Severe, 09/02/24) Medications Current Medications Medications Dose Ordered Sig/Jessie Route Start Time Stop Time Status Last Admin Dose Admin Piperacillin Sod/ Tazobactam Sod 100 ml @ 25 mls/hr Q6HR IV 09/03/24 00:00 UNV Ondansetron HCl 4 mg Q4HP PRN IV 09/02/24 19:30 Morphine Sulfate 2 mg Q4HPRN PRN IV 09/02/24 19:30 Diagnostic Test (Pha) 1 strip Q6HR 09/03/24 00:00 Insulin Human Regular Q6HR SC 09/03/24 00:00 Dextrose 50 ml UD PRN IV 09/02/24 19:30 Nitroglycerin 0.4 mg Q5MINP PRN SL 09/02/24 19:30 Morphine Sulfate 2 mg Q30M PRN IV 09/02/24 19:30 Exam Vital Signs Vital Signs Date Time Temp Pulse Resp B/P (MAP) Pulse Ox O2 Delivery O2 Flow Rate FiO2 09/02/24 20:37 141/84 09/02/24 20:20 18 99 Room Air* 0 21 09/02/24 20:19 98.4 85 98.4 Exam Gen: 34-year-old female mild distress, obese Skin: Warm, dry, normal color and texture, no rash. HEENT: Normocephalic atraumatic, mucous membranes moist and pink. Neck: Cervical and supraclavicular nodes normal without enlargement, trachea is midline, thyroid gland is normal without masses. Pulmonary: Clear to auscultation and percussion bilaterally. Cardiac: Regular rate and rhythm. No murmur Abdomen: Soft, epigastric tenderness, nondistended, bowel sounds present all 4 quadrants, no guarding, no rigidity, no organomegaly. Extremities: No cyanosis, clubbing, no edema Neuro: Cranial nerves II through XII grossly intact, normal affect and speech, no focal motor deficits. Labs/Xrays ORDERING PHYSICIAN: RKIKI VIVAR DO PROCEDURE(s): ABDL - ABDOMEN LIMITED REASON: epig RUQ pain ORDER NUMBER(s): [id number], ACCESSION NUMBER(s): [id number] INDICATION: epig RUQ pain TECHNIQUE: Multiple real-time sonographic images were obtained of the right upper quadrant. COMPARISON: None Findings: Liver is mildly echogenic and is heterogeneous. It measures 15.5 cm in span which is within normal limits. There is a stone and sludge in the dependent portion of the gallbladder. The right kidney has normal corticomedullary differentiation and measures 11.2 cm in length and gallbladder wall measures 1.83 mm in thickness which is normal there is no cyst stone or hydronephrosis involving right kidney. Common bile duct measures 3.2 mm. There is tenderness in the right upper quadrant.. IMPRESSION: 1. Cholelithiasis and probable cholecystitis. Liver is normal in size but slightly echogenic I will check patient's liver function tests. RING PHYSICIAN: RUTH BABB PROCEDURE(s): CXR1 - CHEST XRAY 1 VIEW REASON: Preop ORDER NUMBER(s): [id number], ACCESSION NUMBER(s): [id number] CHEST RADIOGRAPH Indication: Preop Technique: Single frontal view of the chest was obtained Comparison: CHEST PORTABLE on DOS: 10/11/20 FINDINGS: Lines and Tubes: None Lungs: No focal consolidation. Decreased inspiratory effort when compared to 12/2020 Pleura: No effusion. No pneumothorax. Cardiomediastinal contours: Unremarkable Bones: No acute osseous abnormality. IMPRESSION: 1. No acute cardiopulmonary disease. HS:Y Labs Test 09/02/24 19:20 09/02/24 16:08 Range/Units Lactic Acid Level 1.4 0.4-2.0 mmol/L Troponin I High Sensitivity < 3 L </=34 ng/L White Blood Count 9.0 4.4-10.8 10^3/uL Red Blood Count 5.40 H 4.0-5.20 10^6/uL Hemoglobin 13.4 12.2-16.2 g/dL Hematocrit 41.6 36.0-46.0 % Mean Corpuscular Volume 77.1 L 80.0-100.0 fL Mean Corpuscular Hemoglobin 24.8 L 28.0-32.0 pg Mean Corpuscular Hemoglobin Concent 32.1 32.0-36.0 g/dL Red Cell Distribution Width 15.0 H 11.8-14.3 % Platelet Count 365 140-450 10^3/uL Mean Platelet Volume 7.3 6.9-10.8 fL Neutrophils (%) (Auto) 80.1 H 37.0-80.0 % Lymphocytes (%) (Auto) 15.0 10.0-50.0 % Monocytes (%) (Auto) 4.7 0.0-12.0 % Eosinophils (%) (Auto) 0.0 0.0-7.0 % Basophils (%) (Auto) 0.2 0.0-2.0 % Neutrophils # (Auto) 7.2 1.6-8.6 10 ^3/uL Lymphocytes # (Auto) 1.4 0.4-5.4 10 ^3/uL Monocytes # (Auto) 0.4 0-1.3 10 ^3/uL Eosinophils # (Auto) 0 0-0.8 10 ^3/uL Basophils # (Auto) 0 0-0.2 10 ^3/uL Nucleated Red Blood Cells 0.0 % Prothrombin Time 10.8 9.3-11.8 sec Prothrombin Time INR 1.02 0.9-1.15 Activated Partial Thromboplast Time 27.1 24.5-34.5 SEC Sodium Level 138 136-145 mmol/L Potassium Level 4.4 3.5-5.1 mmol/L Chloride Level 102 98-107 mmol/L Carbon Dioxide Level 26 20-31 mmol/L Anion Gap 10 5-15 Blood Urea Nitrogen 6 L 9-23 mg/dL Creatinine 0.91 0.550-1.02 mg/dL Glomerular Filtration Rate Calc 84 >90 mL/min BUN/Creatinine Ratio 6.6 L 10.0-20.0 Serum Glucose 236 H 74-106 mg/dL Calcium Level 10.4 8.7-10.4 mg/dL Total Bilirubin 0.4 0.2-1.0 mg/dL Aspartate Amino Transferase (AST) 9 L 13-40 U/L Alanine Aminotransferase (ALT) 15 7-40 U/L Alkaline Phosphatase 102 46-116 U/L Total Protein 7.8 5.7-8.2 g/dL Albumin 5.2 H 3.2-4.8 g/dL Lipase 30 12-53 U/L Assessment/Plan Assessment/Plan Assessment Acute abdominal pain Rule out acute cholecystitis Cholelithiasis Uncontrolled diabetes mellitus Plan Admit the patient to Med surge to the hospitalist HIDA scan pending Zosyn NPO Maintenance IV fluids Continue treatment per orders. Plan discussed with: Patient My Orders Orders - RUTH BABB AGACNP Procedure Category Date Status Time Piperacillin-Tazob PHA 09/03/24 Logged 3.375gm (Zosyn 3.375g 00:00 Sodium Chloride 0.9% PHA 09/02/24 In Process 19:30 Basic Metabolic Panel LAB 09/03/24 Verified 04:00 Nm Hida Scan NM 09/02/24 Logged 19:28 Type And Screen BBK 09/02/24 In Process 19:28 Chest Xray 1 View XY 09/02/24 Resulted 19:28 Admit ADMIT 09/02/24 Transmitted 19:28 Ondansetron Hcl PHA 09/02/24 In Process (Zofran) 19:30 Complete Blood Count LAB 09/03/24 Verified 04:00 Npo (Nothing By DIET 09/03/24 Transmitted Mouth) Diet Breakfast Condition: Stable CHATA 09/02/24 In Process 19:28 Bedrest With Bathroom CHATA 09/02/24 In Process Privileg 19:28 Morphine Sulfate PHA 09/02/24 In Process Injection 19:30 Glucose Blood PHA 09/03/24 In Process (Accu-Chek Comfort 00:00 Insulin R (Human) PHA 09/03/24 In Process (Insulin R) 00:00 Dextrose 50% Syringe PHA 09/02/24 In Process 19:30 Nitroglycerin PHA 09/02/24 In Process Sublingual (Ntrostat 19:30 Morphine Sulfate PHA 09/02/24 In Process Injection 19:30 Stat Ekg For Chest [facility] 09/02/24 In Process Pain 19:28 Notify Md Of Changes [facility] 09/02/24 In Process From Base 19:28 Presser Machine For [facility] 09/02/24 In Process 24 Hours 19:28 Emergency Dysrhythmia [facility] 09/02/24 In Process Protocol 19:28 Rhythm Strips Once [facility] 09/02/24 In Process Every Shift 19:28 Oxygen By Nasal RT 09/02/24 Transmitted Cannula 19:28 Date of Service: Sep 02, 2024 Billing Provider: RUTH BABB Common Visit Codes: [id number] INP/OBS CARE (HIGH) RUTH BABB Sep 02, 2024 21:45
[2024-09-02 21:47] VITALS: BP 115/82; PULSE 85; RESP 18; TEMP 98.7; O2SAT 98
[2024-09-02] MEDS: MORPHINE SULFATE INJ 2 MG/ml SYRG IV PRN (23:45)
[2024-09-02] MEDS ORDERED: BUSP15TA60 PO (23:51)
[2024-09-02] MEDS ORDERED: DOXE25CA2 PO (23:51)
[2024-09-02] MEDS ORDERED: LUMA21CA PO (23:51)
[2024-09-02] MEDS ORDERED: HYDR50TA69 PO (23:51)
[2024-09-02] MEDS: InsuLIN REG 1unit/0.01ml Soln (100units/ml) SC SCH (23:59)
[2024-09-03] VITALS (11 sets, daily range): BP systolic 123–141; BP diastolic 72–87; PULSE 60–86; RESP 12–22; TEMP 97.9–99.1; O2SAT 96–100
[2024-09-03] MEDS: ACCU-CHEK COMFORT CURVE STRIP VI SCH
[2024-09-03 02:07] LABS: Urine Bacteria None Seen /hpf (None Seen)
[2024-09-03 02:17] LABS: Urine Blood TRACE /uL (Negative); Urine Clarity Clear (Clear); Urine Color Light-Yellow (Yellow); Urine Protein, UAD Negative (Negative); Urine Specific Gravity 1.018 (1.001-1.035); Urine Squamous Epithelial Cell FEW /hpf (<5); Urine Urobilinogen Normal (Negative); Urine WBC 1 /HPF (0-5)
[2024-09-03] MEDS: PIPERACILLIN-TAZOB 3.375GM 100 ML IV ONE (03:14)
[2024-09-03 06:15] LABS: Basophils # (auto) 0 10 ^3/uL (0-0.2); Basophils % (auto) 0.1 % (0.0-2.0); Eosinophils # (auto) 0 10 ^3/uL (0-0.8); Hemoglobin 12.7 g/dL (12.2-16.2); Monocytes # (auto) 0.6 10 ^3/uL (0-1.3)
[2024-09-03 06:16] LABS: Chloride 104 mmol/L (98-107); Potassium 3.9 mmol/L (3.5-5.1); Sodium 138 mmol/L (136-145)
[2024-09-03 06:17] LABS: Anion Gap 7 (5-15); Calcium 10.3 mg/dL (8.7-10.4); Carbon Dioxide 27 mmol/L (20-31)
[2024-09-03 06:20] LABS: Eosinophils % (auto) 0.1 % (0.0-7.0); Hematocrit 39.6 % (36.0-46.0); Lymphocytes % (auto) 36.6 % (10.0-50.0); Mean Corpuscular Hemoglobin 24.8 pg (28.0-32.0); Mean Corpuscular Volume 77.5 fL (80.0-100.0); Monocytes % (auto) 7.9 % (0.0-12.0); Neutrophils # (auto) 4.5 10 ^3/uL (1.6-8.6); Neutrophils % (auto) 55.3 % (37.0-80.0); Platelet Count (auto) 334 10^3/uL (140-450); Red Blood Cells 5.11 10^6/uL (4.0-5.20); White Blood Cell 8.1 10^3/uL (4.4-10.8)
[2024-09-03 06:22] LABS: BUN/Creatinine Ratio 8.3 (10.0-20.0)
[2024-09-03 06:32] LABS: Blood Urea Nitrogen 6 mg/dL (9-23); Glucose 124 mg/dL (74-106)
--- NOTE | 2024-09-03 08:58 | DVH ---
CLINICAL INFORMATION: 34 years old, Female; Rule out acute cholecystitis. TECHNIQUE: 5.3 mCi of Choletec were administered intravenously. Images of the upper abdomen were ob tained at 1 minute intervals up to a total time of 60 minutes. COMPARISON: Ultrasound dated 09/02/2024. FINDINGS: There is prompt gallbladder visualization. There is prompt excretion of activity from the biliary ductal system into the small bowel. There is no evidence of acute cholecystitis. IMPRESSION: 1. No scintigraphic evidence of acute cholecystitis. 2. No evidence for common bile duct obstruction.
[2024-09-03] MEDS ORDERED: HYDROmorphone HCL 2 MG/ML VL/or syr IV PRN ×3 (09:00→13:30)
[2024-09-03] MEDS ORDERED: MORPHINE SULFATE INJ 2 MG/ml SYRG IV PRN (09:00)
[2024-09-03] MEDS ORDERED: MORPHINE SULFATE 4 MG/ML SYR/VIAL IV PRN (09:00)
[2024-09-03] MEDS ORDERED: METH-1214 PO (09:24)
--- NOTE | 2024-09-03 10:04 | DVHINCON2 ---
Date of service: Sep 03, 2024 History of Present Illness 34-year-old female complaining of one day history of epigastric and substernal chest pain radiating to her right upper quadrant with nausea. Patient denies any fevers or vomiting. Past Medical History Diabetes. Anxiety disorder. Depression. PTSD. Past Surgical History Family History Noncontributory Social History No alcohol, tobacco, IV drug use. Patient is on methadone. Allergies: Coded Allergies: Acetaminophen (Verified Allergy, Severe, 09/02/24) Codeine (Verified Allergy, Severe, 09/02/24) Home Meds Active Scripts Amoxicillin Trihydrate (Amoxicillin) 500 Mg Tab, 1 TAB PO BID for 10 Days, #20 TAB 0 Refills Prov:DIALLO [employer] AUDITOR 06/16/24 Reported Medications Methadone Hcl (METHADONE HCL TABLET) 10 Mg Tb, 10 MG PO BID, TAB 09/03/24 Hydroxyzine Hcl (Hydroxyzine Hcl) 50 Mg Tab, 1 TAB PO TID, #90 TAB 2 Refills 09/02/24 Doxepin Hcl (Doxepin Hcl) 25 Mg Cap, 1 CAP PO QPM, #30 CAP 1 Refill 09/02/24 Lumateperone Tosylate (Caplyta) 21 Mg Cap, 21 MG PO, CAP 09/02/24 Buspirone Hcl (Buspirone Hcl) 15 Mg Tab, 1 TAB PO BID, #60 TAB 09/02/24 Current Medications Current Medications Medications (Trade) Dose Ordered Sig/Jessie Route PRN Reason Start Time Stop Time Status Last Admin Piperacillin Sod/ Tazobactam Sod 100 ml @ 25 mls/hr Q8HR IV 09/03/24 14:00 Ondansetron HCl (Zofran) 4 mg Q4HP PRN IV NAUSEA / VOMITING 09/02/24 19:30 Morphine Sulfate 2 mg Q4HPRN PRN IV SEVERE PAIN (7-10 PAIN SCALE) 09/02/24 19:30 09/03/24 05:07 Diagnostic Test (Pha) (Accu-Chek Comfort Curve T) 1 strip Q6HR 09/03/24 00:00 09/03/24 05:08 Insulin Human Regular (InsuLIN R) Q6HR SC 09/03/24 00:00 09/03/24 05:19 Dextrose 50 ml UD PRN IV Blood Sugar LESS THAN 60 09/02/24 19:30 Nitroglycerin (Ntrostat Sublingual) 0.4 mg Q5MINP PRN SL FOR CHEST PAIN 09/02/24 19:30 Morphine Sulfate 2 mg Q30M PRN IV FOR CHEST PAIN 09/02/24 19:30 Hydromorphone HCl (Dilaudid Injection) 0.5 mg Q10M PRN IV SEVERE PAIN (7-10 PAIN SCALE) 09/03/24 09:00 09/03/24 09:41 DC Morphine Sulfate 2 mg Q4H PRN IV BREAKTHRU PAIN SCALE 7-10 09/03/24 09:00 09/03/24 13:01 Hydromorphone HCl (Dilaudid Injection) 0.25 mg Q10M PRN IV MODERATE PAIN (4-6 PAIN SCALE) 09/03/24 09:00 09/03/24 09:41 DC Morphine Sulfate 1 mg Q30M PRN IV SEVERE PAIN (7-10 PAIN SCALE) 09/03/24 09:00 09/03/24 11:01 Vital Signs Vital Signs Date Time Temp Pulse Resp B/P (MAP) Pulse Ox O2 Delivery O2 Flow Rate FiO2 09/03/24 05:37 65 18 122/65 09/03/24 05:00 98.4 97 98.4 09/03/24 01:06 Room Air* 0 21 Physical Exam GEN: Slightly obese female in no acute distress. Alert. HEENT: Normocephalic atraumatic. Moist mucous membranes. Anicteric sclerae. CV: RRR Respiratory: CTAB ABD: Slightly obese abdomen with minimal localized right upper quadrant tenderness to palpation without guarding or rebound. Abdominal ultrasound: Cholelithiasis with common bile duct at 3.2 mm. Labs/Diagnostic Data Labs Test 09/03/24 05:34 09/03/24 05:12 09/02/24 19:20 09/02/24 16:08 Range/Units White Blood Count 8.1 4.4-10.8 10^3/uL Red Blood Count 5.11 4.0-5.20 10^6/uL Hemoglobin 12.7 12.2-16.2 g/dL Hematocrit 39.6 36.0-46.0 % Mean Corpuscular Volume 77.5 L 80.0-100.0 fL Mean Corpuscular Hemoglobin 24.8 L 28.0-32.0 pg Mean Corpuscular Hemoglobin Concent 32.0 32.0-36.0 g/dL Red Cell Distribution Width 15.0 H 11.8-14.3 % Platelet Count 334 140-450 10^3/uL Mean Platelet Volume 7.4 6.9-10.8 fL Neutrophils (%) (Auto) 55.3 37.0-80.0 % Lymphocytes (%) (Auto) 36.6 10.0-50.0 % Monocytes (%) (Auto) 7.9 0.0-12.0 % Eosinophils (%) (Auto) 0.1 0.0-7.0 % Basophils (%) (Auto) 0.1 0.0-2.0 % Neutrophils # (Auto) 4.5 1.6-8.6 10 ^3/uL Lymphocytes # (Auto) 3.0 0.4-5.4 10 ^3/uL Monocytes # (Auto) 0.6 0-1.3 10 ^3/uL Eosinophils # (Auto) 0 0-0.8 10 ^3/uL Basophils # (Auto) 0 0-0.2 10 ^3/uL Nucleated Red Blood Cells 0.0 % Sodium Level 138 136-145 mmol/L Potassium Level 3.9 3.5-5.1 mmol/L Chloride Level 104 98-107 mmol/L Carbon Dioxide Level 27 20-31 mmol/L Anion Gap 7 5-15 Blood Urea Nitrogen 6 L 9-23 mg/dL Creatinine 0.72 0.550-1.02 mg/dL Glomerular Filtration Rate Calc 112 >90 mL/min BUN/Creatinine Ratio 8.3 L 10.0-20.0 Serum Glucose 124 H 74-106 mg/dL Calcium Level 10.3 8.7-10.4 mg/dL Beta HCG, Quantitative 0.3 L 1.5-4.2 mIU/mL POC Glucose 133 H 70-106 mg/dl Lactic Acid Level 1.4 0.4-2.0 mmol/L Troponin I High Sensitivity < 3 L </=34 ng/L Prothrombin Time 10.8 9.3-11.8 sec Prothrombin Time INR 1.02 0.9-1.15 Activated Partial Thromboplast Time 27.1 24.5-34.5 SEC Total Bilirubin 0.4 0.2-1.0 mg/dL Aspartate Amino Transferase (AST) 9 L 13-40 U/L Alanine Aminotransferase (ALT) 15 7-40 U/L Alkaline Phosphatase 102 46-116 U/L Total Protein 7.8 5.7-8.2 g/dL Albumin 5.2 H 3.2-4.8 g/dL Lipase 30 12-53 U/L Test 09/02/24 01:00 Range/Units Urine Color Light-yellow Yellow Urine Clarity Clear Clear Urine pH 6.0 5.0-9.0 Urine Specific [place] 1.018 1.001-1.035 Urine Protein Negative Negative Urine Ketones Negative Negative Urine Blood Trace H Negative /uL Urine Nitrite Negative Negative Urine Bilirubin Negative Negative Urine Urobilinogen Normal Negative mg/dL Urine Leukocyte Esterase Negative Negative /uL Urine RBC 1 0 - 4 /hpf Urine Microscopic WBC 1 0-5 /HPF Urine Squamous Epithelial Cells Few <5 /hpf Urine Bacteria None seen None Seen /hpf Urine Glucose Normal Normal mg/dL Assessment 1. Cholecystitis Plan/Recommendation 1. I informed the patient that she probably has chronic cholecystitis but no acute cholecystitis based on the negative HIDA scan. I also gave her the option of proceeding with surgery today versus scheduling as an elective surgery as an outpatient. However patient opted to proceed with the surgery today. We will proceed with laparoscopic cholecystectomy possible open surgery. Informed consent: The surgery and its risks including but not limited to infection, bleeding requiring possible blood transfusion with the risk of hepatitis or HIV infection, possible open surgery, possible cystic duct leak or retained common bile duct stone requiring further intervention such as an ERCP, possible perioperative [place] or stroke were explained to the patient. All questions were answered to her satisfaction. She expressed verbal understanding and wished to proceed with the surgery. Plan discussed with: Patient ALDO QUEZADA MD Sep 03, 2024 10:04
--- NOTE | 2024-09-03 10:38 | ECG ---
[facility] Test Date: 2024-09-02 Test Time: 16:02:55 Pat Name: SANDRA MIRANDA Department: ER Room: [address] [place] [address] Gender: F Acoustic Intelligence Specialist: CHRISSIE : 1990 Requested By: RIKKI VIVAR Order Number: [id number] Reading MD: Robinson Coleman Measurements Intervals [place] Rate: 107 P: 50 IN: 130 QRS: 16 QRSD: 77 T: -5 QT: 331 QTc: 442 Interpretive Statements Sinus tachycardia Low voltage, precordial leads Borderline T abnormalities, diffuse leads Electronically Signed On 09-05-2024 17:39:16 PST by Robinson Coleman Please click the below link to view image of tracing.
--- NOTE | 2024-09-03 10:38 | ECG ---
[facility] Test Date: 2024-09-02 Test Time: 16:02:32 Pat Name: SANDRA MIRANDA Department: ER Room: [address] [place] [address] Gender: F Coal Yard Supervisor: CHRISSIE : 1990 Requested By: RIKKI VIVAR Order Number: [id number] Reading MD: Robinson Coleman Measurements Intervals [place] Rate: 110 P: 0 RI: 0 QRS: 39 QRSD: 61 T: -7 QT: 363 QTc: 492 Interpretive Statements Atrial flutter with predominant 3:1 AV block Borderline T abnormalities, diffuse leads Borderline prolonged QT interval Electronically Signed On 09-05-2024 17:39:05 PST by Robinson Coleman Please click the below link to view image of tracing.
--- NOTE | 2024-09-03 10:40 | ECG ---
[facility] Test Date: 2024-09-02 Test Time: 17:55:48 Pat Name: SANDRA MIRANDA Department: ER Room: [address] [place] [address] Gender: F Extrusion Supervisor: CHRISSIE : 1990 Requested By: RIKKI VIVAR Order Number: [id number] Reading MD: Robinson Coleman Measurements Intervals [place] Rate: 90 P: 2 ID: [id number] QRS: 18 QRSD: 80 T: 37 QT: 353 QTc: 432 Interpretive Statements Sinus rhythm Electronically Signed On 09-05-2024 17:40:28 PST by Robinson Coleman Please click the below link to view image of tracing.
[2024-09-03] MEDS ORDERED: KETAMINE 50mg/ML 1ml syringe ONE (10:54)
[2024-09-03] MEDS ORDERED: ROCURONIUM 10MG/ML 10ML VIAL IV ONE (10:54)
[2024-09-03] MEDS ORDERED: ONDANSETRON HCL 4 MG/2 ML VIAL ONE (10:54)
[2024-09-03] MEDS ORDERED: MEPERIDINE HCL (25 MG/ML) 1ML VIAL ONE ×2 (10:54→12:29)
[2024-09-03] MEDS ORDERED: MIDAZOLAM HCL 2MG/2ML 2ml VIAL (1mg/ml) ONE (10:54)
[2024-09-03] MEDS ORDERED: SODIUM CHLORIDE LOCK 10 ML ONE (10:54)
[2024-09-03] MEDS ORDERED: GLYCOPYRROLATE 0.2 MG/ML 1ML VIAL ONE (10:54)
[2024-09-03] MEDS ORDERED: fentaNYL CITRATE 100 MCG/2 ML VL ONE (10:54)
[2024-09-03] MEDS ORDERED: PROPOFOL 10 MG/ML 20 ML IV ONE (10:54)
[2024-09-03] MEDS ORDERED: LIDOCAINE 1% INJ PF 5ML AMP ONE (10:54)
[2024-09-03] MEDS ORDERED: NEOSTIGMINE 1 MG/ML INJ (10mg/10ML VIAL) ONE (10:54)
--- NOTE | 2024-09-03 11:42 | DVHPN2 ---
Reviewed: Care Plan, H&P, Labs, Medications, Previous Orders, Radiology Changes from previous H/P or p: No Changes Objective Vitals Vital Signs Date Time Temp Pulse Resp B/P (MAP) Pulse Ox O2 Delivery O2 Flow Rate FiO2 09/03/24 09:00 98.3 62 18 126/72 (90) 96 98.3 09/03/24 01:06 Room Air* 0 21 Intake/Output Intake and Output 09/03/24 07:00 Intake Total 1000 ml Balance 1000 ml Intake Oral 0 ml IV Total 1000 ml # Voids 1 Medications Current Medications Medications Dose Ordered Sig/Jessie Route Start Time Stop Time Status Last Admin Dose Admin Piperacillin Sod/ Tazobactam Sod 100 ml @ 25 mls/hr Q8HR IV 09/03/24 14:00 Ondansetron HCl 4 mg Q4HP PRN IV 09/02/24 19:30 Morphine Sulfate 2 mg Q4HPRN PRN IV 09/02/24 19:30 09/03/24 05:07 2 MG Diagnostic Test (Pha) 1 strip Q6HR 09/03/24 00:00 09/03/24 05:08 1 STRIP Insulin Human Regular Q6HR SC 09/03/24 00:00 09/03/24 05:19 2 UNITS Dextrose 50 ml UD PRN IV 09/02/24 19:30 Nitroglycerin 0.4 mg Q5MINP PRN SL 09/02/24 19:30 Morphine Sulfate 2 mg Q30M PRN IV 09/02/24 19:30 Morphine Sulfate 2 mg Q4H PRN IV 09/03/24 09:00 09/03/24 13:01 Laboratory Results Laboratory Tests 09/03/24 05:34 Chemistry Test 09/02/24 16:08 09/03/24 05:34 Albumin 5.2 g/dL (3.2-4.8) H Calcium Level 10.4 mg/dL (8.7-10.4) 10.3 mg/dL (8.7-10.4) Total Protein 7.8 g/dL (5.7-8.2) Coagulation Test 09/02/24 16:08 Prothrombin Time 10.8 sec (9.3-11.8) Prothrombin Time INR 1.02 (0.9-1.15) Activated Partial Thromboplast Time 27.1 SEC (24.5-34.5) Lipid panel Test 09/02/24 16:08 Lipase 30 U/L (12-53) LFT Test 09/02/24 16:08 Alanine Aminotransferase (ALT) 15 U/L (7-40) Alkaline Phosphatase 102 U/L (46-116) Aspartate Amino Transferase (AST) 9 U/L (13-40) L Total Bilirubin 0.4 mg/dL (0.2-1.0) Urinalysis Test 09/02/24 01:00 Urine Color Light-yellow (Yellow) Urine Clarity Clear (Clear) Urine pH 6.0 (5.0-9.0) Urine Specific [place] 1.018 (1.001-1.035) Urine Protein Negative (Negative) Urine Ketones Negative (Negative) Urine Blood Trace /uL (Negative) H Urine Nitrite Negative (Negative) Urine Bilirubin Negative (Negative) Urine Urobilinogen Normal mg/dL (Negative) Urine Leukocyte Esterase Negative /uL (Negative) Urine RBC 1 /hpf (0 - 4) Urine Microscopic WBC 1 /HPF (0-5) Urine Squamous Epithelial Cells Few /hpf (<5) Urine Bacteria None seen /hpf (None Seen) Urine Glucose Normal mg/dL (Normal) Labs and/or images reviewed: Labs reviewed by me, Image(s) reviewed by me Assessment/Plan Assessment/Plan Acute on chronic cholecystitis: Continue Daria, surgeon Dr. Escamilla planning for lap misty Acute abdominal pain Acute dehydration: IV fluids Plan discussed with: Patient Date of Service: Sep 03, 2024 Billing Provider: PER BRADLEY MD Common Visit Codes: [id number] INP/OBS CARE(HIGH) PER BRADLEY MD Sep 03, 2024 11:42
[2024-09-03] MEDS: Lidocaine/Epinephrine 1%-1:100,000 30ML VL ONE (12:31)
[2024-09-03] MEDS ORDERED: SUGAMMADEX 200mg/2ml Vial (100MG/ML) IV ONE (12:42)
--- NOTE | 2024-09-03 12:53 | DVHOP2 ---
Operative Report - 2 Report Details Date: 09/03/24 Preop Diagnosis: Cholecystitis Postop Diagnosis: same Surgeon: Santhosh Quezada MD Nut Packer: none Anesthesiologist: Dr. Brown Anesthesia: General, Local Consent: The surgery and its risks including but not limited to infection, bleeding requiring possible blood transfusion with the risk of hepatitis or HIV infection, possible open surgery, possible cystic duct leak or retained common bile duct stone requiring further intervention such as an ERCP, possible perioperative [place] or stroke were explained to the patient. All questions were answered to her satisfaction. She expressed verbal understanding and wished to proceed with the surgery. Complications: None Estimated Blood Loss: 20 mL Fluids: 300 mL Name of Procedure Performed Laparoscopic cholecystectomy Procedure Details Procedure Details: After induction of general anesthesia, patient's abdomen was prepped and draped in standard surgical fashion. A small supraumbilical incision was made and this incision was taken through the abdominal wall down to the fascia which was opened sharply. Peritoneum was then bluntly divided gaining access to the intra-abdominal cavity. Interrupted 0 Vicryl sutures were placed through the fascial incision and using an open technique, Aleks trocar was introduced and secured using the Vicryl sutures. Abdomen was insufflated to 15 mmHg and camera was inserted. Visual examination of the intestine under the fascial incision appeared normal without injury. Under direct visualization, a 5 mm bladeless trocar was placed in the subxiphoid region and two additional 5 mm bladeless trocars were placed in the right upper quadrant all under direct visualization. Examination of the right upper quadrant revealed distended and edematous gallbladder. Gallbladder was grasped and retracted in a cephalad direction. Infundibulum was retracted laterally and careful blunt dissection was performed to identify the cystic duct which appeared normal in size. This was clipped and divided using Endoclips without complication. Cystic artery was located just next to the cystic duct and this was also clipped and divided using Endoclips without complication. Gallbladder was then removed from the liver bed using electrocautery. There was no bile or stone spillage during the maneuver. Gallbladder was then removed from the abdominal cavity using an endo pouch bag and sent off the surgical field. Abdomen was then re-insufflated and hemostasis in the liver bed was achieved using electrocautery. Right upper quadrant was then well irrigated until fluid was clear. Trocars were then removed under direct visualization as the abdomen was deflated. Additional interrupted 0 Vicryl sutures were placed through the supraumbilical fascial incision and the sutures were tied down closing off the supraumbilical fascia. Surgical sites were irrigated injected with 20 mL of 1% lidocaine with epinephrine. Skin incisions were closed using angel luis. Surgical site was cleaned and dried and dressings were applied. Sponge, needle, instrument count at the end of the case were reported to be correct by the nursing staff. The patient tolerated the surgery well and at the time of dictation, the patient is being awaked from anesthesia. Specimen: Gallbladder Condition Stable Disposition Still a Patient SANTHOSH QUEZADA MD Sep 03, 2024 12:53
[2024-09-03] MEDS: METOCLOPRAMIDE HCL 5MG/ml INJ 2ml VIAL IV ONE (13:07)
[2024-09-03] MEDS: KETOROLAC TROMETH 30 MG/ML 1ML VIAL IV ONE (13:07)
[2024-09-03] MEDS: ROCURONIUM 10MG/ML 10ML VIAL IV ONE (13:09)
[2024-09-03] MEDS: SUCCINYLCHOLINE CHLORIDE 20 MG/ML 10ML VIAL IV ONE (13:09)
[2024-09-03] MEDS: ceFAZolin 1GM/50ML 100 ML IV ONE (13:09)
[2024-09-03] MEDS: HYDROmorphone HCL 2 MG/ML VL/or syr IV PRN (13:24)
[2024-09-03] MEDS: LACTATED RINGER'S 1,000 ML IV ONE (14:50)
[2024-09-03] MEDS: ACCU-CHEK COMFORT CURVE STRIP VI ONE (14:50)
[2024-09-03] MEDS: PIPERACILLIN-TAZOB 3.375GM 100 ML IV SCH (14:57)
[2024-09-04 01:00] VITALS: BP 132/94; PULSE 75; RESP 20; TEMP 98.2; O2SAT 97
[2024-09-04 05:00] VITALS: BP 135/89; PULSE 75; RESP 19; TEMP 98.2; O2SAT 96
[2024-09-04 06:19] LABS: Basophils # (auto) 0 10 ^3/uL (0-0.2); Basophils % (auto) 0.1 % (0.0-2.0); Eosinophils # (auto) 0 10 ^3/uL (0-0.8); Hematocrit 39.1 % (36.0-46.0); Hemoglobin 12.6 g/dL (12.2-16.2); Lymphocytes # (auto) 2.1 10 ^3/uL (0.4-5.4); Lymphocytes % (auto) 26.2 % (10.0-50.0); Mean Corpuscular Hemoglobin 24.8 pg (28.0-32.0); Mean Corpuscular Hgb Conc. 32.1 g/dL (32.0-36.0); Mean Corpuscular Volume 77.1 fL (80.0-100.0); Monocytes # (auto) 0.7 10 ^3/uL (0-1.3); Monocytes % (auto) 8.9 % (0.0-12.0); Neutrophils # (auto) 5.2 10 ^3/uL (1.6-8.6); Neutrophils % (auto) 64.8 % (37.0-80.0); Nucleated Red Blood Cells % 0.1 %; Platelet Count (auto) 329 10^3/uL (140-450); Red Blood Cells 5.07 10^6/uL (4.0-5.20); Red Cell Distribution Width 14.6 % (11.8-14.3); White Blood Cell 8.1 10^3/uL (4.4-10.8)
[2024-09-04 06:22] LABS: Alanine Aminotransferase 15 U/L (7-40); Albumin 4.4 g/dL (3.2-4.8); Alkaline Phosphatase 76 U/L (46-116); Anion Gap 10 (5-15); BUN/Creatinine Ratio 9.2 (10.0-20.0); Bilirubin, Total 0.6 mg/dL (0.2-1.0); Calcium 9.8 mg/dL (8.7-10.4); Carbon Dioxide 27 mmol/L (20-31); Chloride 103 mmol/L (98-107); Potassium 3.7 mmol/L (3.5-5.1); Sodium 140 mmol/L (136-145); Total Protein 6.6 g/dL (5.7-8.2)
[2024-09-04 06:41] LABS: Aspartate Aminotransferase 13 U/L (13-40); Blood Urea Nitrogen 7 mg/dL (9-23); Glucose 120 mg/dL (74-106)
[2024-09-04 08:00] VITALS: PULSE 71; RESP 15; O2SAT 94
[2024-09-04 09:00] VITALS: BP 126/85; PULSE 71; RESP 15; TEMP 98.2; O2SAT 94
[2024-09-04] MEDS: ONDANSETRON HCL 4 MG/2 ML VIAL IV PRN (09:22)
--- NOTE | 2024-09-04 09:32 | DVHPN2 ---
Progress Note - Dictate Date Seen: Sep 04, 2024 Medical Necessity Reason Pt with a Central, PICC or Fol: No Subjective E: no major events o/n.\ c/o incisional pain and asking for methadone. ezekiel clear liquid diet. vital signs Vital Sign Date Time Temp Pulse Resp B/P (MAP) Pulse Ox O2 Delivery O2 Flow Rate FiO2 09/04/24 09:23 71 15 126/85 09/04/24 08:00 94 Room Air* 0 21 09/04/24 05:00 98.2 98.2 Total Intake and Output 09/03/24 09/03/24 09/04/24 15:00 23:00 07:00 Intake Total 100 ml 300 ml 550 ml Output Total 2 ml 200 ml Balance 100 ml 298 ml 350 ml medications Current Medications Medications Dose Ordered Sig/Jessie Route Start Time Stop Time Status Last Admin Dose Admin Piperacillin Sod/ Tazobactam Sod 100 ml @ 25 mls/hr Q8HR IV 09/03/24 14:00 09/04/24 06:13 25 MLS/HR Ondansetron HCl 4 mg Q4HP PRN IV 09/02/24 19:30 09/04/24 09:22 4 MG Morphine Sulfate 2 mg Q4HPRN PRN IV 09/02/24 19:30 09/04/24 09:23 2 MG Diagnostic Test (Pha) 1 strip Q6HR 09/03/24 00:00 09/04/24 06:14 1 STRIP Insulin Human Regular Q6HR SC 09/03/24 00:00 09/04/24 07:02 2 UNITS Dextrose 50 ml UD PRN IV 09/02/24 19:30 Nitroglycerin 0.4 mg Q5MINP PRN SL 09/02/24 19:30 Morphine Sulfate 2 mg Q30M PRN IV 09/02/24 19:30 objective GEN: NAD ABD: surgical dressings clean and dry. laboratory and microbiology Laboratory Tests 09/04/24 05:29 Test 09/04/24 05:29 Range/Units Serum Glucose 120 H 74-106 mg/dL Assessment/Plan A: 1. s/p lap cholecystectomy POD #1 stable. P: 1. dc plan per hospitalist 2. remove bandages tomorrow and shower. ok to get incisions wet tomorrow. 3. call [phone] for f/u appt. f/u next week. Plan discussed with: Patient ALDO QUEZADA MD Sep 04, 2024 09:32
--- NOTE | 2024-09-04 10:12 | DVHPN2 ---
Reviewed: Care Plan, H&P, Labs, Medications, Previous Orders, Radiology Changes from previous H/P or p: No Changes Objective Vitals Vital Signs Date Time Temp Pulse Resp B/P (MAP) Pulse Ox O2 Delivery O2 Flow Rate FiO2 09/04/24 09:23 71 15 126/85 09/04/24 09:00 98.2 94 98.2 09/04/24 08:00 Room Air* 0 21 Intake/Output Intake and Output 09/04/24 07:00 Intake Total 950 ml Output Total 202 ml Balance 748 ml Intake Oral 650 ml IV Total 300 ml Output Urine Total 200 ml Stool Total 2 ml Medications Current Medications Medications Dose Ordered Sig/Jessie Route Start Time Stop Time Status Last Admin Dose Admin Piperacillin Sod/ Tazobactam Sod 100 ml @ 25 mls/hr Q8HR IV 09/03/24 14:00 09/04/24 06:13 25 MLS/HR Ondansetron HCl 4 mg Q4HP PRN IV 09/02/24 19:30 09/04/24 09:22 4 MG Morphine Sulfate 2 mg Q4HPRN PRN IV 09/02/24 19:30 09/04/24 09:23 2 MG Diagnostic Test (Pha) 1 strip Q6HR 09/03/24 00:00 09/04/24 06:14 1 STRIP Insulin Human Regular Q6HR SC 09/03/24 00:00 09/04/24 07:02 2 UNITS Dextrose 50 ml UD PRN IV 09/02/24 19:30 Nitroglycerin 0.4 mg Q5MINP PRN SL 09/02/24 19:30 Morphine Sulfate 2 mg Q30M PRN IV 09/02/24 19:30 Laboratory Results Laboratory Tests 09/04/24 05:29 Chemistry Test 09/04/24 05:29 Albumin 4.4 g/dL (3.2-4.8) Calcium Level 9.8 mg/dL (8.7-10.4) Total Protein 6.6 g/dL (5.7-8.2) LFT Test 09/04/24 05:29 Alanine Aminotransferase (ALT) 15 U/L (7-40) Alkaline Phosphatase 76 U/L (46-116) Aspartate Amino Transferase (AST) 13 U/L (13-40) Total Bilirubin 0.6 mg/dL (0.2-1.0) Urinalysis Test 09/02/24 01:00 Urine Color Light-yellow (Yellow) Urine Clarity Clear (Clear) Urine pH 6.0 (5.0-9.0) Urine Specific [place] 1.018 (1.001-1.035) Urine Protein Negative (Negative) Urine Ketones Negative (Negative) Urine Blood Trace /uL (Negative) H Urine Nitrite Negative (Negative) Urine Bilirubin Negative (Negative) Urine Urobilinogen Normal mg/dL (Negative) Urine Leukocyte Esterase Negative /uL (Negative) Urine RBC 1 /hpf (0 - 4) Urine Microscopic WBC 1 /HPF (0-5) Urine Squamous Epithelial Cells Few /hpf (<5) Urine Bacteria None seen /hpf (None Seen) Urine Glucose Normal mg/dL (Normal) Labs and/or images reviewed: Labs reviewed by me, Image(s) reviewed by me Assessment/Plan Assessment/Plan Acute on chronic cholecystitis: Status post Laparoscopic cholecystectomy by Dr. Escamilla on 09/03/24, Continue Zosyn pain medications Acute abdominal pain Acute dehydration: IV fluids Plan discussed with: Patient Date of Service: Sep 04, 2024 Billing Provider: PER BRADLEY MD Common Visit Codes: [id number] INP/OBS CARE(HIGH) PER BRADLEY MD Sep 04, 2024 10:12
[2024-09-04] MEDS ORDERED: TRAM-626 PO (10:20)
[2024-09-04] MEDS ORDERED: LEVO500T91 PO (10:20)
[2024-09-04] MEDS ORDERED: METR-344 PO (10:20)
--- NOTE | 2024-09-04 10:25 | DVHDS2 ---
Discharge Summary Date of Admission Sep 02, 2024 at 19:28 Date of Discharge: Sep 04, 2024 Admitting Diagnosis Right upper quadrant abdominal pain Wounds: Laparoscopic cholecystectomy Labs/Diagnostic Data: Laboratory Results Test 09/04/24 05:29 09/03/24 18:59 09/03/24 05:34 09/02/24 19:20 White Blood Count 8.1 10^3/uL (4.4-10.8) Red Blood Count 5.07 10^6/uL (4.0-5.20) Hemoglobin 12.6 g/dL (12.2-16.2) Hematocrit 39.1 % (36.0-46.0) Mean Corpuscular Volume 77.1 fL (80.0-100.0) Mean Corpuscular Hemoglobin 24.8 pg (28.0-32.0) Mean Corpuscular Hemoglobin Concent 32.1 g/dL (32.0-36.0) Red Cell Distribution Width 14.6 % (11.8-14.3) Platelet Count 329 10^3/uL (140-450) Mean Platelet Volume 7.6 fL (6.9-10.8) Neutrophils (%) (Auto) 64.8 % (37.0-80.0) Lymphocytes (%) (Auto) 26.2 % (10.0-50.0) Monocytes (%) (Auto) 8.9 % (0.0-12.0) Eosinophils (%) (Auto) 0.0 % (0.0-7.0) Basophils (%) (Auto) 0.1 % (0.0-2.0) Neutrophils # (Auto) 5.2 10 ^3/uL (1.6-8.6) Lymphocytes # (Auto) 2.1 10 ^3/uL (0.4-5.4) Monocytes # (Auto) 0.7 10 ^3/uL (0-1.3) Eosinophils # (Auto) 0 10 ^3/uL (0-0.8) Basophils # (Auto) 0 10 ^3/uL (0-0.2) Nucleated Red Blood Cells 0.1 % Sodium Level 140 mmol/L (136-145) Potassium Level 3.7 mmol/L (3.5-5.1) Chloride Level 103 mmol/L (98-107) Carbon Dioxide Level 27 mmol/L (20-31) Anion Gap 10 (5-15) Blood Urea Nitrogen 7 mg/dL (9-23) Creatinine 0.76 mg/dL (0.550-1.02) Glomerular Filtration Rate Calc 105 mL/min (>90) BUN/Creatinine Ratio 9.2 (10.0-20.0) Serum Glucose 120 mg/dL (74-106) Calcium Level 9.8 mg/dL (8.7-10.4) Total Bilirubin 0.6 mg/dL (0.2-1.0) Aspartate Amino Transferase (AST) 13 U/L (13-40) Alanine Aminotransferase (ALT) 15 U/L (7-40) Alkaline Phosphatase 76 U/L (46-116) Total Protein 6.6 g/dL (5.7-8.2) Albumin 4.4 g/dL (3.2-4.8) POC Glucose 191 mg/dl (70-106) Beta HCG, Quantitative 0.3 mIU/mL (1.5-4.2) Lactic Acid Level 1.4 mmol/L (0.4-2.0) Troponin I High Sensitivity < 3 ng/L (</=34) Test 09/02/24 16:08 09/02/24 01:00 Prothrombin Time 10.8 sec (9.3-11.8) Prothrombin Time INR 1.02 (0.9-1.15) Activated Partial Thromboplast Time 27.1 SEC (24.5-34.5) Lipase 30 U/L (12-53) Urine Color Light-yellow (Yellow) Urine Clarity Clear (Clear) Urine pH 6.0 (5.0-9.0) Urine Specific [place] 1.018 (1.001-1.035) Urine Protein Negative (Negative) Urine Ketones Negative (Negative) Urine Blood Trace /uL (Negative) Urine Nitrite Negative (Negative) Urine Bilirubin Negative (Negative) Urine Urobilinogen Normal mg/dL (Negative) Urine Leukocyte Esterase Negative /uL (Negative) Urine RBC 1 /hpf (0 - 4) Urine Microscopic WBC 1 /HPF (0-5) Urine Squamous Epithelial Cells Few /hpf (<5) Urine Bacteria None seen /hpf (None Seen) Urine Glucose Normal mg/dL (Normal) Other Laboratory Tests 09/04/24 05:29 Brief Hx & Hospital Course: 34-year-old female came in for right upper quadrant abdominal pain. . Found to have acute cholecystitis and underwent laparoscopic cholecystectomy by surgeon Dr. Escamilla on 09/03/24 treated with the IV antibiotics pain medications and IV fluids. At the time of discharge patient is afebrile stable vital signs and wants to be discharged home today. Cleared for discharge by surgeon. Discharged on Levaquin Flagyl and tramadol. She will follow up with surgeon in 10 days patient also has methadone dependency. Consults/Reason for consult Surgeon Operations or Procedures Laparoscopic cholecystectomy Condition at Discharge: Fair Final Diagnosis/Problems List Acute on chronic cholecystitis: Status post Laparoscopic cholecystectomy by Dr. Escamilla on 09/03/24, Continue Zosyn pain medications Acute abdominal pain Acute dehydration: IV fluids Methadone dependency Discharge Disposition: Home Discharge Instruct/Medications Diet: Regular Activity: Light activity Follow Up/Referral: Follow up with surgeon Dr. Escamilla in 10 days Medications: Levaquin Flagyl Tramadol Transmitted to pharmacy 35 (Time taken for discharge summary 35 minutes) Discharge Statement: "Patient was advised to return to the ER or call 911 if any headaches, dizziness, shortness of breath, chest pain, abdominal pain, bleeding, fevers, or worsening of medical condition. Patient was counseled about treatment plan, medications, possible side effects, patientverbalized understanding. All questions were answered to the best of my ability. This discharge took greater then 30 minutes in planning, reviewing documentation, counseling the patient, and discussing with other team members." ASSESSMENT ASSESSMENT Hospital Course Improved Assessment Acute on chronic cholecystitis: Status post Laparoscopic cholecystectomy by Dr. Escamilla on 09/03/24, Continue Zosyn pain medications Acute abdominal pain Acute dehydration: IV fluids Methadone dependency Date of Service: Sep 04, 2024 Billing Provider: PER BRADLEY MD Common Visit Codes: [id number] DISCH DAY >30min PER BRADLEY MD Sep 04, 2024 10:25
[2024-09-04] MEDS ORDERED: METHADONE HCL 10 MG TAB PO ONE ×2 (10:30→11:15)
[2024-09-04] MEDS ORDERED: METH-1214 PO ×2 (10:39→10:40)
[2024-09-04] MEDS: METHADONE HCL 10 MG TAB PO ONE (11:18)
[2024-09-04 11:43] VITALS: BP 126/85; PULSE 71; RESP 15; TEMP 36.8; O2SAT 94
[2024-09-04 12:00] VITALS: BP 127/80; PULSE 74; RESP 15; TEMP 98; O2SAT 96
--- NOTE | 2024-09-04 14:41 | ECG ---
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
== END 2024-09-04 12:40 | disposition home or self-care (01) | DRG 263 ==
LOC: ER 15:54 → OVERFLOW 19:28 → EAST 23:12
PROVIDERS: ADMIT Family Medicine; ATTEND Family Medicine
PROC: 0FT44ZZ Resection of Gallbladder, Percutaneous Endoscopic Approach (ICD-10-PCS; principal; 2024-09-03 12:01)
DX: K80.12 Calculus of gallbladder with acute and chronic cholecystitis without obstruction (principal); E87.20 Acidosis, unspecified; E86.0 Dehydration; F43.10 Post-traumatic stress disorder, unspecified; F32.A Depression, unspecified; F11.20 Opioid dependence, uncomplicated; F41.9 Anxiety disorder, unspecified; Z88.6 Allergy status to analgesic agent; Z88.5 Allergy status to narcotic agent; Z79.899 Other long term (current) drug therapy; Z79.4 Long term (current) use of insulin; E11.65 Type 2 diabetes mellitus with hyperglycemia
CPT/HCPCS: 36415; 71045; 76705; 78226; 80048; 80053; 81001; 82962; 83605; 83690; 84484; 84702; 85025; 85610; 85730; 86850; 86900; 86901; 93005; 96361; 96374; 96375; G0378; J0330; J1815; J1885; J2250; J2405; J2543; J2704